=== PATIENT | female | born 1960 | race Caucasian/White ===

== ENCOUNTER → 2017-09-24 08:18 | Outpatient (CLI) | payer OTHER, SELFPAY ==
[2017-09-24 12:33] LABS: T3 Total - Triiodothyronine 1.02 ng/mL (0.6-1.81)
[2017-09-24 12:44] LABS: T4 Free Direct 1.08 ng/dL (0.76-1.46); Thyroid Stim Hormone (TSH) 0.51 uIU/mL (0.358-3.74)
== END ==
PROVIDERS: Family Provider Family Medicine; PCP Family Medicine; Visit Provider Family Medicine
DX: E03.9 Hypothyroidism, unspecified (principal)
CPT/HCPCS: 36415; 84439; 84443; 84480

== ENCOUNTER → 2018-07-15 13:57 | Outpatient (CLI) | payer OTHER, SELFPAY ==
[2018-07-15 15:56] LABS: T4 Free Direct 1.04 ng/dL (0.76-1.46); Thyroid Stim Hormone (TSH) 0.28 uIU/mL (0.358-3.74)
[2018-07-15 16:06] LABS: T3 Total - Triiodothyronine 1.12 ng/mL (0.6-1.81); Vitamin B12 493 pg/mL (211-911); Vitamin D,25 Hydroxy 25.3 ng/mL (29.95-100.01)
--- OUTSIDE RECORDS SUMMARY | 2018-10-17 05:41 | XMS RPT_ITS ---
:1960 Author Organization [facility] Care Team Providers Name Role Phone Mayte Montana Attending Unavailable Malys, Mayte Primary Care Unavailable [place], Mayte Attending Unavailable [place]ys, Mayte Primary Care Unavailable PROBLEMS PROBLEMS DATE TYPE CONDITION / CODE ATTENDING STATUS SOURCE 09/24/2017 Unknown E03.9 - Mayte Montana Active [place] Hypothyroidism, Community unspecified / Hospital E03.9(ICD-10) Repository PROCEDURES PROCEDURES No Procedure Records FoundRESULTS RESULTS THYROID STIM HORMONE Collected: 07/15/2018 Status: F Source: [place] (TSH) 1:58 PM [facility] [place] CODE TESTS RESULT OUT OF RANGE REFERENCE UNITS LAB L501.9520 0.358-3.74 uIU/mL Low TSH 0.28 Performed By: #### L501.9520, L506.0400 #### [place] [facility] [address] [place], [address] T4 FREE DIRECT Collected: 07/15/2018 Status: F Source: [place] 1:58 PM [facility] [place] CODE TESTS RESULT OUT OF RANGE REFERENCE UNITS LAB L506.0400 0.76-1.46 ng/dL Normal T4 FREE 1.04 DIRECT Performed By: #### L501.9520, L506.0400 #### [facility] [address] [place], [address] T3 TOTAL - TRIIODOTHYRONINE Collected: 07/15/2018 Status: F Source: [place] 1:58 PM [facility] [place] CODE TESTS RESULT OUT OF RANGE REFERENCE UNITS LAB L501.9186 0.6-1.81 ng/mL Normal T3 Total 1.12 Performed By: #### L501.9186, L503.0105, L506.1000 #### [facility] [address] [place], [address] VITAMIN B12 Collected: 07/15/2018 Status: F Source: [place] 1:58 PM [facility] [place] CODE TESTS RESULT OUT OF RANGE REFERENCE UNITS LAB L503.0105 211-911 pg/mL Normal Vitamin B12 493 Performed By: #### L501.9186, L503.0105, L506.1000 #### [facility] [address] [place], [address] VITAMIN D,25 HYDROXY Collected: 07/15/2018 Status: F Source: [place] 1:58 PM [facility] [place] CODE TESTS RESULT OUT OF REFERENCE UNITS RANGE LAB L506.1000 29.95-100.01 ng/mL Low Vitamin D 25.3 25-OH Result Comment: Vitamin D 25(OH) Status Range Deficiency <20 ng/mL (50nmol/L) Insuffciency 20 - 30 ng/mL (50 - 75 nmol/L) Sufficiency 30 - 100 ng/mL (75 - 250 nmol/L) Toxicity >100 ng/mL (>250 nmol/L) Performed By: #### L501.9186, L503.0105, L506.1000 #### [facility] [address] [place], [address] T3 TOTAL - TRIIODOTHYRONINE Collected: 09/24/2017 Status: F Source: [place] 8:20 AM [facility] [place] CODE TESTS RESULT OUT OF RANGE REFERENCE UNITS LAB L501.9186 0.6-1.81 ng/mL Normal T3 Total 1.02 Performed By: #### L501.9186 #### [facility] [address] [place], [address] THYROID STIM HORMONE Collected: 09/24/2017 Status: F Source: [place] (TSH) 8:20 AM [facility] [place] CODE TESTS RESULT OUT OF RANGE REFERENCE UNITS LAB L501.9520 0.358-3.74 uIU/mL Normal TSH 0.51 Performed By: #### L501.9520, L506.0400 #### [facility] [address] [place], [address] T4 FREE DIRECT Collected: 09/24/2017 Status: F Source: [place] 8:20 AM [facility] [place] CODE TESTS RESULT OUT OF RANGE REFERENCE UNITS LAB L506.0400 0.76-1.46 ng/dL Normal T4 FREE 1.08 DIRECT Performed By: #### L501.9520, L506.0400 #### [facility] [address] [place], [address] ALLERGIES ALLERGIES DATE TYPE / CODE NAME / CODE REACTION SEVERITY SOURCE 06/22/2014 Drug No Known Unknown [facility] Allergy/4160 Allergies/F00 [facility] [address](SNOMED [id number](RXNOR Repository CT) M) ENCOUNTERS ENCOUNTERS ADMIT/DISCHARGE ACCOUNT ADMITTING ENCOUNTER LOCATION SOURCE NUMBER CLASS 07/15/2018 [id number] Ambulatory [facility] 7 [facility] ing:BFHLAB Repository 09/24/2017 [id number] Ambulatory [facility] 9 [facility] ing:LAB.FUTUR Repository E PAYERS PAYERS ENCOUNTER GUARANTOR PAYER SUBSCRIBER SOURCE 07/15/2018 Zo Pinzon [place] [id number] [place] Insurance:MEDICAL ZemrockDOB: [facility] [id number] [id number]: [phone]) Number: Repository [phone] () [id number] Date:[id number] [place], [place] [id number]: 07/15/2018 Secondary NOT GIVENUNK [place] Insurance:SELF PAY [facility] Number: Effective Repository Date:2018-07-15 09/24/2017 Zo Valdivia [id number] [place] Insurance:MEDICAL ZemrockDOB: [facility] [id number] [id number]: [phone]) Number: Repository [phone] () [id number] Date:[id number], [place] [address]NS: 09/24/2017 Secondary NOT GIVENUNK [place] Insurance:SELF PAY [facility] Number: Effective Repository Date:2017-07-16
== END ==
PROVIDERS: Family Provider Family Medicine; PCP Family Medicine; Visit Provider Family Medicine
DX: E03.9 Hypothyroidism, unspecified (principal); E55.9 Vitamin D deficiency, unspecified; E53.8 Deficiency of other specified B group vitamins
CPT/HCPCS: 36415; 82306; 82607; 84439; 84443; 84480

== ENCOUNTER → 2018-09-06 08:15 | Outpatient (CLI) | payer OTHER, SELFPAY ==
--- NOTE | 2018-09-06 08:18 | BI_ITS ---
MAMMOGRAPHY - BILATERAL SCREENING REASON FOR EXAM: Female, 58 years old. Routine annual screening examination. PERTINENT HISTORY: Mother with breast cancer. Grandmother with breast cancer. Aunt with breast cancer. Remote right stereotactic breast biopsies. TECHNIQUE: Digital bilateral breast paris (3D mammographic acquisition) in the CC and MLO projections. 2-D mediolateral oblique (MLO) and craniocaudad (CC) views of both breasts were obtained. CAD: Full Field Digital Mammography with Computer Added Detection was performed. COMPARISON: Comparison is made with prior examination dated August 15, 2017 and August 02, 2016. FINDINGS: Breast Composition: There are scattered areas of fibroglandular density. There are no dominant masses or suspicious calcifications. Stable 1.1 cm well-defined nodule in the deep slightly upper lateral portion of the right breast. A tissue clip marker is seen adjacent to this. A second tissue clip marker is seen in the deep slightly inferior aspect of the right breast. Stable tiny nodules are once again seen in the anterior aspect of the right breast. No other significant abnormalities are identified. There has been no significant change since the prior study. BI/SCREENING MAMM (CAD), BILAT IMPRESSION: Stable bilateral screening mammogram. Yearly follow-up mammogram recommended. (A) ASSESSMENT CATEGORY: BIRADS Category 2: Benign. A letter regarding these results will be sent to the patient by the facility within 30 days. Approximately 10% of breast cancers are not detected by mammography. A normal mammogram should not delay biopsy of a clinically suspicious abnormality. [id number] Electronically Signed: Jewel Emerson MD at 10:16 EST , Service support ,
== END ==
PROVIDERS: Family Provider Family Medicine; PCP Family Medicine; Referring Provider Family Medicine; Visit Provider Family Medicine
DX: Z12.31 Encounter for screening mammogram for malignant neoplasm of breast (principal)
CPT/HCPCS: 77063; 77067

== ENCOUNTER → 2018-12-05 | Outpatient (CLI) | payer OTHER, SELFPAY | END | disposition home or self-care (01) | LOC: BFHLAB 13:40 | PROVIDERS: Family Provider Family Medicine; PCP Family Medicine; Visit Provider Family Medicine | DX: R30.0 Dysuria (principal) | CPT/HCPCS: 87086; 87088; 87186 ==

== ENCOUNTER → 2019-07-07 05:55 | Outpatient (CLI) | payer OTHER, SELFPAY ==
[2019-07-07 07:27] LABS: Absolute Lymphocyte Count 2.18 X10^3/uL (0.83-4.51); Absolute Neutrophil Count 3.4 X10^3/uL (2.0-7.7); Basophil# 0.05 X10^3/uL; Basophil% 0.8 % (0-1); Eosinophil# 0.28 X10^3/uL; Eosinophils% 4.4 % (0-5); Hematocrit 43.3 % (37-47); Hemoglobin 13.9 g/dL (12.0-15.0); Lymphocyte # 2.18 X10^3/ul (4.0); Lymphocyte % 34.2 % (19-41); Mean Corp Hgb Conc 32.1 g/dL (32-36); Mean Corpuscular Hgb 28.7 pg (27.0-32.0); Mean Corpuscular Volume 89.5 fL (81-99); Monocyte# 0.48 X10^3/uL; Monocyte% 7.5 % (0-10); NRBC Flagged by Analyzer 0 % (0-5); Neutrophil # 3.37 X10^3/uL (2.7-7.7); Neutrophil % 52.8 % (47-70); Platelet Count 275 K/mm3 (150-450); RBC Distribution Width CV 12.1 % (11.6-14.6); RBC Distribution Width SD 39.7 fl (35.1-43.9); Red Blood Count 4.84 M/mm3 (4.2-5.4); White Blood Count 6.4 K/mm3 (4.4-11.0)
[2019-07-07 08:01] LABS: ALB/GLOB Ratio 1.2 RATIO (0.9-2.4); AST(SGOT) 19 U/L (15-37); Alanine Aminotransfer ALT/SGPT 24 U/L (13-56); Alkaline Phosphatase 80 U/L (45-117); Anion Gap 3 (5-15); BUN 16 mg/dL (7-18); BUN/Creat Ratio 14.2 RATIO (10-20); Calcium,Total 8.8 mg/dL (8.5-10.1); Chloride 108 mmol/L (98-107); Cholesterol 177 mg/dL (200); Creatinine, Serum 1.13 mg/dL (0.55-1.02); EST Glomerular Filtration Rate 53 mL/min (>60); Est Glom Filt Rate - Afr Amer 64 mL/min (>60); Free T3 2.4 pg/mL (2.18-3.98); Globulin 3.3 g/dL (2.2-4.2); Glucose 97 mg/dL (74-106); High Density Lipoprotein 49 mg/dL; Potassium 4.2 mmol/L (3.5-5.1); Protein, Total 7.3 g/dL (6.4-8.2); Sodium Level 140 mmol/L (136-145); T4 Free Direct 0.85 ng/dL (0.76-1.46); Triglycerides 108 mg/dL; Very Low Density Lipoprotein 22 mg/dL (5-40)
== END ==
PROVIDERS: Family Provider Family Medicine; PCP Family Medicine; Referring Provider Family Medicine; Visit Provider Family Medicine
DX: E78.5 Hyperlipidemia, unspecified (principal); I10 Essential (primary) hypertension; Z51.81 Encounter for therapeutic drug level monitoring; E03.9 Hypothyroidism, unspecified
CPT/HCPCS: 36415; 80053; 80061; 84439; 84443; 84481; 85025

== ENCOUNTER → 2019-07-17 14:11 | Outpatient (CLI) | payer SELFPAY ==
--- NOTE | 2019-07-17 14:14 | CT_ITS ---
STUDY: CARDIAC CALCIUM SCORING - CT CHEST REASON FOR EXAM: Female, 58 years old. Family history of heart disease RADIATION DOSAGE (If Supplied By Facility): CTDIvol = ( 12.19 ) mGy, DLP = ( 195.04 ) mGycm TECHNIQUE: Axial non-enhanced images were acquired through the heart for the sole purpose of measuring coronary artery calcium. Individualized dose optimization techniques were used for this CT. COMPARISON: None. FINDINGS: Visualized surrounding anatomy: Normal. Left Main Coronary Artery: 0 Left Anterior Descending Artery: 0 Left Circumflex Artery: 0 Right Coronary Artery: 0 Other: Total Calcium Score: 0 CT/Limited Chest CT w/CCTA IMPRESSION: A Calcium Score of 0 places the patient in the approximate 25 percentile, based on the HIRSCH data calculator. Please go to: [email or web address] , for a description of the calculator. Electronically Signed: Santiago Foster MD at 16:04 EST , Service support ,
[2019-07-17 14:32] VITALS: BP 134/54; PULSE 70; RESP 14; O2SAT 96; BMI 34.7
--- NOTE | 2019-07-17 17:49 | CA.SCORE ---
Calcium Scoring Date of Study:: 07/17/19 Coronary Calcium Scoring: High-resolution Computed Tomographic imaging of the chest was performed on 07/17/2019 with particular attention paid to the coronary arteries. Images from the examination were analyzed for the presence and extent of coronary artery calcification , using coronary calcium quantification software. The patient tolerated the procedure well and there were no complications. The results of the coronary calcification analysis are provided below. - Findings Left Main (LM): 0 Left Anterior Descending (LAD): 0 Left Circumflex (LCX): 0 Right Coronary Artery (RCA): 0 Total Agatston Score: 0 Percentile Ranking: Percentile ranking: Based upon pre-published data of 25% of patients of the same gender/similar age had the same and/or lower scores. Calcium Scoring Interpretation: 0 No identifiable atherosclerotic plaque. Very low cardiovascular disease risk. <5% chance of presence coronary artery disease A Negative Examination 1-10 Minimal Plaque burden. Significant coronary artery disease very unlikely. 11-100 Mild plaque burden. Likely mild or minimal coronary atherosclerosis. 101-400 Moderate plaque burden Moderate non-obstructive coronary artery disease highly likely. Over 400 Extensive plaque burden. High likelihood of at least one significant coronary stenosis (>50% diameter) Calcium Score: 0 Negative Examination - Continue cardiovascular risk factor evaluation and care as deemed appropriate.
== END ==
PROVIDERS: Family Provider Family Medicine; PCP Family Medicine; Referring Provider Family Medicine; Visit Provider Family Medicine
DX: I10 Essential (primary) hypertension (principal); E78.5 Hyperlipidemia, unspecified; Z82.49 Family history of ischemic heart disease and other diseases of the circulatory system
CPT/HCPCS: 75571; 76380

== ENCOUNTER → 2019-09-09 07:28 | Outpatient (CLI) | payer OTHER, SELFPAY ==
[2019-07-17 14:32] VITALS: BMI 34.7
--- NOTE | 2019-09-09 06:52 | BI_ITS ---
MAMMOGRAPHY - BILATERAL SCREENING REASON FOR EXAM: Female, 59 years old. Routine annual screening examination. PERTINENT HISTORY: Mother with breast cancer. Grandmother with breast cancer. Aunt with breast cancer. Prior right stereotactic breast biopsy. TECHNIQUE: Digital bilateral breast henrique (3D mammographic acquisition) in the CC and MLO projections. 2-D mediolateral oblique (MLO) and craniocaudad (CC) views of both breasts were obtained. CAD: Full Field Digital Mammography with Computer Added Detection was performed. COMPARISON: Comparison is made with prior examination dated September 06, 2018 and August 15, 2007. FINDINGS: Breast Composition: There are scattered areas of fibroglandular density. There are no dominant masses or suspicious calcifications. The previously seen well-defined nodule in the deep slightly upper lateral aspect of the right breast has decreased further in size. It presently measures 6.6 mm x 7 mm. A tissue clip marker is once again seen adjacent to this nodule. A second tissue clip marker is seen in the deep slightly inferior aspect of the right breast. No other significant abnormalities are identified. BI/SCREEN MAMM (CAD) W/HENRIQUE BILAT IMPRESSION: Stable bilateral screening mammogram. Yearly follow-up mammogram recommended. (A) ASSESSMENT CATEGORY: BIRADS Category 0: Incomplete. Need additional imaging evaluation. A letter regarding these results will be sent to the patient by the facility within 30 days. Approximately 10% of breast cancers are not detected by mammography. A normal mammogram should not delay biopsy of a clinically suspicious abnormality. [id number] Electronically Signed: Jewel [place], at 8:37 EST , Service support ,
== END ==
LOC: OPBI 07:28
PROVIDERS: PCP Family Medicine; Referring Provider Family Medicine; Visit Provider Family Medicine
DX: Z12.31 Encounter for screening mammogram for malignant neoplasm of breast (principal)
CPT/HCPCS: 77063; 77067

== ENCOUNTER → 2019-09-10 16:18 | Outpatient (CLI) | payer OTHER, SELFPAY ==
[2019-07-17 14:32] VITALS: BMI 34.7
[2019-09-10 17:37] LABS: Erythrocyte Sedimentation Rate 5 mm/hr (0-30)
[2019-09-10 18:23] LABS: ALB/GLOB Ratio 1.2 RATIO (0.9-2.4); AST(SGOT) 17 U/L (15-37); Alanine Aminotransfer ALT/SGPT 32 U/L (13-56); Albumin, Serum 4.2 g/dL (3.2-5.0); Alkaline Phosphatase 81 U/L (45-117); Anion Gap 7 (5-15); BUN 26 mg/dL (7-18); CRP 5.63 mg/L (0.0-3.0); Calcium,Total 9.6 mg/dL (8.5-10.1); Chloride 105 mmol/L (98-107); EST Glomerular Filtration Rate 45 mL/min (>60); Est Glom Filt Rate - Afr Amer 54 mL/min (>60); Free T3 2.5 pg/mL (2.18-3.98); Globulin 3.5 g/dL (2.2-4.2); Glucose 83 mg/dL (74-106); Potassium 3.7 mmol/L (3.5-5.1); Protein, Total 7.7 g/dL (6.4-8.2); Sodium Level 139 mmol/L (136-145); Thyroid Stim Hormone (TSH) 1.95 uIU/mL (0.358-3.74)
[2019-09-15 12:07] LABS: Lyme IgG P18 Ab Absent (.); Lyme IgG P23 Ab Absent (.); Lyme IgG P28 Ab Absent (.); Lyme IgG P30 Ab Absent (.); Lyme IgG P39 Ab Absent (.); Lyme IgG P41 Ab Present (.); Lyme IgG P45 Ab Absent (.); Lyme IgG P58 Ab Absent (.); Lyme IgG P66 Ab Absent (.); Lyme IgG P93 Ab Absent (.); Lyme IgM P23 Ab Absent (.); Lyme IgM P39 Ab Present (.); Lyme IgM P41 Ab Absent (.)
[2019-09-15 22:14] LABS: Lyme IgG WB Interpretation Negative (.); Lyme IgM WB Interpretation Negative (.)
== END ==
PROVIDERS: Family Provider Family Medicine; PCP Family Medicine; Visit Provider Family Medicine
DX: M25.50 Pain in unspecified joint (principal); W57.XXXA Bitten or stung by nonvenomous insect and other nonvenomous arthropods, initial encounter; I10 Essential (primary) hypertension; E78.5 Hyperlipidemia, unspecified; E03.9 Hypothyroidism, unspecified; Z51.81 Encounter for therapeutic drug level monitoring
CPT/HCPCS: 36415; 80053; 84443; 84481; 85652; 86140; 86617

== ENCOUNTER → 2019-09-23 07:36 | Outpatient (CLI) | payer OTHER, SELFPAY ==
[2019-07-17 14:32] VITALS: BMI 34.7
--- NOTE | 2019-09-23 07:42 | US_ITS ---
STUDY: RENAL ULTRASOUND - COMPLETE REASON FOR EXAM: Female, 59 years old. DECREASED RENAL FUNCTION TECHNIQUE: Ultrasound evaluation of the kidneys was performed with real-time and static machuca-scale imaging. COMPARISON: None. FINDINGS: RIGHT KIDNEY: Normal location of the right kidney, which is normal in size. The right kidney measures 10.4 x 5.6 x 4.5 cm. There is a normal cortex of the right kidney. The renal cortex measures 1.6 cm. There is no right renal mass or cyst. There are no right renal calculi. There is no right hydronephrosis. DISTAL RIGHT URETER: There is non-visualization of the distal right ureter. There is no demonstrated right ureterovesical junction calculus. There is a visualized right ureteral jet. LEFT KIDNEY: Normal location of the left kidney, which is normal in size. The left kidney measures 11.4 x 4.8 x 4.3 cm. There is a normal cortex of the left kidney. The renal cortex measures 1.6 cm. There is no left renal mass or cyst. There are no left renal calculi. There is no left hydronephrosis. DISTAL LEFT URETER: There is non-visualization of the distal left ureter. There is no demonstrated left ureterovesical junction calculus. There is a visualized left ureteral jet. BLADDER: The distended urinary bladder has a volume of 565 ml. . There is a normal wall thickness of the distended urinary bladder. Bladder wall thickness is 4 mm. There is no demonstrated mass within the urinary bladder. There are no demonstrated bladder calculi. US/Kidney and Bladder IMPRESSION: Normal ultrasound of the kidneys and urinary bladder. Electronically Signed: Mathew Haley MD at 23:57 EST , Service support ,
== END ==
PROVIDERS: PCP Family Medicine; Referring Provider Family Medicine; Visit Provider Family Medicine
DX: N28.9 Disorder of kidney and ureter, unspecified (principal)
CPT/HCPCS: 76770

== ENCOUNTER → 2019-12-01 09:47 | Outpatient (CLI) | payer OTHER, SELFPAY ==
[2019-07-17 14:32] VITALS: BMI 34.7
[2019-12-01 10:57] LABS: Anion Gap 5 (5-15); BUN 18 mg/dL (7-18); BUN/Creat Ratio 16.8 RATIO (10-20); Chloride 109 mmol/L (98-107); Creatinine, Serum 1.07 mg/dL (0.55-1.02); EST Glomerular Filtration Rate 56 mL/min (>60); Est Glom Filt Rate - Afr Amer 68 mL/min (>60); Glucose 85 mg/dL (74-106); Phosphorus 3.9 mg/dL (2.5-4.9); Sodium Level 140 mmol/L (136-145)
[2019-12-01 11:00] LABS: PTHIN 35.8 pg/mL (18.4-80.1)
[2019-12-01 11:04] LABS: Vitamin D,25 Hydroxy 30.5 ng/mL
[2019-12-01 11:18] LABS: 24 Hour Urine Protein 74.1 mg/24HR (<150 MG/24HR); 24HR. UA Prot. Total Volume 1300 mL; Urine Protein (24 Hour) < 6.0 mg/dL (<11.9)
[2019-12-01 11:19] LABS: Creat.Clear Total Volume 1300 mL; Creatinine Clearance 90 ml/min (100-200); Creatinine Serum Creat 1.1 mg/dL (0.6-1.0); EST Glomerular Filtration Rate 56 mL/min (>60); Est Glom Filt Rate - Afr Amer 68 mL/min (>60)
[2019-12-03 12:07] LABS: PROEL- A/G Ratio 1.2 (0.7-1.7); PROEL- Albumin 3.7 g/dL (2.9-4.4); PROEL- Alpha-1 Globulin 0.2 g/dL (0.0-0.4); PROEL- Alpha-2 Globulin 0.7 g/dL (0.4-1.0); PROEL- Beta Globulin 1.1 g/dL (0.7-1.3); PROEL- Globulin, Total 3.1 g/dL (2.2-3.9); PROEL- TOTAL PROTEIN 6.8 g/dL (6.0-8.5); PROELU- Albumin, Urine 29.5 % (.); PROELU- Alpha-1-Globulin,Ur 0.4 % (.); PROELU- Alpha-2-Globulin,Ur 15.8 % (.); PROELU- Beta Globulin, Ur 28.9 % (.); PROELU- Gamma Globulin, Ur 25.5 % (.); Total Protein, Ur 11.5 mg/dL (Not Estab.)
== END ==
PROVIDERS: PCP Family Medicine; Referring Provider Internal Medicine; Visit Provider Internal Medicine
DX: N18.3 Chronic kidney disease, stage 3 (moderate) (principal)
CPT/HCPCS: 80048; 81050; 82306; 82575; 83970; 84100; 84156; 84165; 84166

== ENCOUNTER → 2020-01-02 09:47 | Outpatient (CLI) | payer OTHER, SELFPAY ==
[2019-07-17 14:32] VITALS: BMI 34.7
[2020-01-02 09:50] LABS: Bacteria 0 SEEN /hpf (None Seen); Mucous, Urine 0 SEEN /hpf (<or=2+); Red Blood Cells-Urine 0 SEEN /hpf (0-5); Squamous Epithelial Cells - UA 0 SEEN /hpf (5-10)
[2020-01-02 12:30] LABS: Erythrocyte Sedimentation Rate 5 mm/hr (0-30)
[2020-01-02 12:35] LABS: Color, Urine Yellow (Yellow); Glucose, Dipstick Normal (Normal); Ketone-Dipstick Negative (Negative); Leukocyte Esterase-Dipstick 25 /ul (Negative); Nitrite-Dipstick Negative (Negative); Occult Blood-Urine 10 /ul (Negative); Protein-Dipstick Negative (Negative); Urine Bilirubin Dipstick Negative (Negative); Urine Clarity Clear (Clear); Urine Urobilinogen Normal (Normal)
[2020-01-02 12:45] LABS: White Blood Cells 0-5 SEEN /hpf (0-5)
[2020-01-02 13:08] LABS: CRP 3.13 mg/L (0.0-3.0)
[2020-01-02 13:14] LABS: Microalbumin,Random Urine 14.7 mg/L (NO RANGE EST.); Microalbumin:Creatinine Ratio 6.3 mg/g CRE (<30 mg/g CRE)
[2020-01-04 21:17] LABS: CCP IgG Antibodies 5 units (0-19)
[2020-01-05 15:48] LABS: ANTINUCLEAR ANTIBODIES DIRECT Negative (Negative)
== END ==
LOC: LAB.FUTURE 09:47 → BFHLAB 09:48
PROVIDERS: PCP Family Medicine; Visit Provider Family Medicine
DX: N18.3 Chronic kidney disease, stage 3 (moderate) (principal); M25.50 Pain in unspecified joint; M79.10 Myalgia, unspecified site
CPT/HCPCS: 36415; 81001; 82043; 82570; 85652; 86038; 86140; 86200; 86225; 86235; 86431

== ENCOUNTER → 2020-05-25 16:25 | Outpatient (CLI) | payer OTHER, SELFPAY ==
[2019-07-17 14:32] VITALS: BMI 34.7
[2020-05-25 16:29] LABS: Bacteria 0 SEEN /hpf (None Seen); Mucous, Urine 0 SEEN /hpf (<or=2+); Red Blood Cells-Urine 0 SEEN /hpf (0-5); Squamous Epithelial Cells - UA 0 SEEN /hpf (5-10); White Blood Cells 0 SEEN /hpf (0-5)
[2020-05-25 17:18] LABS: Color, Urine Yellow (Yellow); Glucose, Dipstick Normal (Normal); Ketone-Dipstick Negative (Negative); Leukocyte Esterase-Dipstick Negative /ul (Negative); Nitrite-Dipstick Negative (Negative); Occult Blood-Urine 10 /ul (Negative); Protein-Dipstick Negative (Negative); Specific Gravity, Urine 1.015 (1.002-1.030); Urine Bilirubin Dipstick Negative (Negative); Urine Clarity Clear (Clear); Urine Urobilinogen Normal (Normal); Urine pH 6.5 (5.0 - 8.0)
[2020-05-25 17:31] LABS: Protein, Urine (Random) < 6.0 mg/dL (<11.9)
[2020-05-25 17:43] LABS: Anion Gap 5 (5-15); BUN 20 mg/dL (7-18); BUN/Creat Ratio 17.4 RATIO (10-20); Calcium,Total 8.5 mg/dL (8.5-10.1); Chloride 105 mmol/L (98-107); Creatinine, Serum 1.15 mg/dL (0.55-1.02); EST Glomerular Filtration Rate 52 mL/min (>60); Est Glom Filt Rate - Afr Amer 62 mL/min (>60); Glucose 124 mg/dL (74-106); Phosphorus 3.7 mg/dL (2.5-4.9); Potassium 4.1 mmol/L (3.5-5.1); Sodium Level 139 mmol/L (136-145)
[2020-05-25 17:46] LABS: Vitamin D,25 Hydroxy 28.2 ng/mL
[2020-05-26 10:15] LABS: PTHIN 65.7 pg/mL (18.4-80.1)
== END ==
PROVIDERS: PCP Family Medicine; Visit Provider Internal Medicine
DX: N18.30 Chronic kidney disease, stage 3 unspecified (principal)
CPT/HCPCS: 36415; 80048; 81001; 82306; 82570; 83970; 84100; 84156

== ENCOUNTER → 2020-07-13 10:06 | Outpatient (CLI) | payer OTHER, SELFPAY ==
[2019-07-17 14:32] VITALS: BMI 34.7
[2020-07-13 12:18] LABS: Absolute Lymphocyte Count 1.81 X10^3/uL (0.83-4.51); Absolute Neutrophil Count 4.7 X10^3/uL (2.0-7.7); Basophil# 0.03 X10^3/uL; Basophil% 0.4 % (0-1); Eosinophil# 0.14 X10^3/uL; Hematocrit 43.2 % (37-47); Hemoglobin 13.8 g/dL (12.0-15.0); Lymphocyte # 1.81 X10^3/ul (4.0); Lymphocyte % 25.3 % (19-41); Mean Corp Hgb Conc 31.9 g/dL (32-36); Mean Corpuscular Hgb 27.8 pg (27.0-32.0); Mean Corpuscular Volume 87.1 fL (81-99); Mean Platelet Vol. 10.3 fl (6.2-12.0); Monocyte# 0.46 X10^3/uL; Monocyte% 6.4 % (0-10); NRBC Flagged by Analyzer 0 % (0-5); Neutrophil % 65.6 % (47-70); Platelet Count 288 K/mm3 (150-450); RBC Distribution Width CV 11.8 % (11.6-14.6); RBC Distribution Width SD 37.3 fl (35.1-43.9); Red Blood Count 4.96 M/mm3 (4.2-5.4); White Blood Count 7.2 K/mm3 (4.4-11.0)
[2020-07-13 12:20] LABS: Erythrocyte Sedimentation Rate 4 mm/hr (0-30)
[2020-07-13 12:45] LABS: ALB/GLOB Ratio 1.2 RATIO (0.9-2.4); AST(SGOT) 16 U/L (15-37); Alanine Aminotransfer ALT/SGPT 27 U/L (13-56); Alkaline Phosphatase 80 U/L (45-117); Anion Gap 7 (5-15); BUN 18 mg/dL (7-18); BUN/Creat Ratio 15.9 RATIO (10-20); CRP 6.68 mg/L (0.0-3.0); Chloride 107 mmol/L (98-107); Cholesterol 192 mg/dL (200); Creatinine, Serum 1.13 mg/dL (0.55-1.02); EST Glomerular Filtration Rate 53 mL/min (>60); Est Glom Filt Rate - Afr Amer 64 mL/min (>60); Free T3 2.8 pg/mL (2.18-3.98); Globulin 3.4 g/dL (2.2-4.2); Glucose 90 mg/dL (74-106); High Density Lipoprotein 41 mg/dL; Potassium 4.3 mmol/L (3.5-5.1); Protein, Total 7.4 g/dL (6.4-8.2); Sodium Level 141 mmol/L (136-145); Thyroid Stim Hormone (TSH) 0.75 uIU/mL (0.358-3.74); Triglycerides 146 mg/dL; Very Low Density Lipoprotein 29 mg/dL (5-40)
== END ==
PROVIDERS: PCP Family Medicine; Visit Provider Family Medicine
DX: E03.9 Hypothyroidism, unspecified (principal); M25.50 Pain in unspecified joint; E78.5 Hyperlipidemia, unspecified; Z51.81 Encounter for therapeutic drug level monitoring
CPT/HCPCS: 36415; 80053; 80061; 84439; 84443; 84481; 85025; 85652; 86140; 86431

== ENCOUNTER → 2020-09-20 07:38 | Outpatient (CLI) | payer OTHER, SELFPAY ==
[2019-07-17 14:32] VITALS: BMI 34.7
--- NOTE | 2020-09-20 07:40 | BI_ITS ---
MAMMOGRAPHY - BILATERAL SCREENING REASON FOR EXAM: Female, 60 years old. Routine annual screening examination. PERTINENT HISTORY: Mother with breast cancer. Grandmother with breast cancer. Aunt with breast cancer. History of prior right stereotactic breast biopsy. TECHNIQUE: Digital bilateral breast henrique (3D mammographic acquisition) in the CC and MLO projections. 2-D mediolateral oblique (MLO) and craniocaudad (CC) views of both breasts were obtained. CAD: Full Field Digital Mammography with Computer Added Detection was performed. COMPARISON: Comparison is made with prior study dated 09/09/2019 and 09/06/2018. FINDINGS: Breast Composition: There are scattered areas of fibroglandular density. There are no dominant masses or suspicious calcifications. There is a 5.9 mm x 6.3 mm well-defined nodule in the retroareolar region of the right breast. This was not seen on prior study. Correlation with ultrasound is recommended. Stable appearance of the tissue clip marker is in the right breast. No other significant abnormalities are identified. BI/SCRN MAMM (CAD)W/HENRIQUE BILAT IMPRESSION: 5.9 mm x 6.3 mm well-defined nodule in the retroareolar region of the right breast as described. Correlation with ultrasound is recommended. ASSESSMENT CATEGORY: BIRADS Category 0: Incomplete. Need additional imaging evaluation. A letter regarding these results will be sent to the patient by the facility within 30 days. Approximately 10% of breast cancers are not detected by mammography. A normal mammogram should not delay biopsy of a clinically suspicious abnormality. [id number] Electronically Signed: Jewel Emerson MD at 8:59 EST , Service support ,
== END ==
PROVIDERS: PCP Family Medicine; Referring Provider Family Medicine; Visit Provider Family Medicine
DX: Z12.31 Encounter for screening mammogram for malignant neoplasm of breast (principal)
CPT/HCPCS: 77063; 77067

== ENCOUNTER → 2020-09-22 10:45 | Outpatient (CLI) | payer OTHER, SELFPAY ==
[2019-07-17 14:32] VITALS: BMI 34.7
--- NOTE | 2020-09-22 10:47 | US_ITS ---
STUDY: ULTRASOUND BREAST - RIGHT REASON FOR EXAM: Female, 60 years old. Abnormal screening mammogram. TECHNIQUE: Axial and longitudinal images of the RIGHT breast were performed with a high resolution ultrasound transducer. # OF IMAGES: 31 COMPARISON: Comparison is made with prior mammogram dated 09/20/2020. FINDINGS: RIGHT Breast: The mammographic abnormality corresponds to a 6 mm x 5 mm x 7 mm cyst. This is adjacent to the nipple. Incidental note is made of a 6 mm x 5 mm x 6 mm septated cyst at the 12 o''clock position of the breast at 1 cm from nipple. US/Breast Limited Unilateral IMPRESSION: 2 small cysts. ASSESSMENT CATEGORY: BIRADS Category 2: Benign. A letter regarding these results will be sent to the patient by the facility within 30 days. Electronically Signed: Jewel Emerson MD at 12:53 EST , Service support ,
== END ==
PROVIDERS: PCP Family Medicine; Referring Provider Family Medicine; Visit Provider Family Medicine
DX: N63.41 Unspecified lump in right breast, subareolar (principal)
CPT/HCPCS: 76642

== ENCOUNTER → 2020-10-21 | Outpatient (CLI) | payer OTHER, SELFPAY ==
[2019-07-17 14:32] VITALS: BMI 34.7
[2020-10-21 17:03] LABS: Probe Check PASS; Specimen Processing Control PASS
== END | disposition home or self-care (01) ==
LOC: LABSPEC 13:39
PROVIDERS: PCP Family Medicine; Visit Provider Family Medicine
DX: Z20.828 Contact with and (suspected) exposure to other viral communicable diseases (principal)
CPT/HCPCS: 87635; U0002

== ENCOUNTER → 2020-10-22 08:43 | Outpatient (CLI) | payer OTHER, SELFPAY ==
[2019-07-17 14:32] VITALS: BMI 34.7
[2020-10-22 10:15] LABS: Color, Urine Yellow (Yellow); Glucose, Dipstick Normal (Normal); Ketone-Dipstick Negative (Negative); Leukocyte Esterase-Dipstick 25 /ul (Negative); Nitrite-Dipstick Negative (Negative); Occult Blood-Urine 10 /ul (Negative); Protein-Dipstick Negative (Negative); Specific Gravity, Urine 1.015 (1.002-1.030); Urine Bilirubin Dipstick Negative (Negative); Urine Clarity Sl. Cloudy (Clear); Urine Urobilinogen 1 mg/dl (Normal)
[2020-10-22 10:17] LABS: Anion Gap 7 (5-15); BUN 20 mg/dL (7-18); BUN/Creat Ratio 17.4 RATIO (10-20); Calcium,Total 8.9 mg/dL (8.5-10.1); Chloride 103 mmol/L (98-107); Creatinine, Serum 1.15 mg/dL (0.55-1.02); EST Glomerular Filtration Rate 52 mL/min (>60); Est Glom Filt Rate - Afr Amer 62 mL/min (>60); Glucose 97 mg/dL (74-106); Phosphorus 3.4 mg/dL (2.5-4.9); Potassium 3.3 mmol/L (3.5-5.1); Sodium Level 140 mmol/L (136-145)
[2020-10-22 10:19] LABS: Protein, Urine (Random) 29.8 mg/dL (<11.9); Protein:Creat Ratio 122 mg/g CRE (0-200)
== END ==
PROVIDERS: PCP Family Medicine; Referring Provider Internal Medicine; Visit Provider Internal Medicine
DX: N18.30 Chronic kidney disease, stage 3 unspecified (principal)
CPT/HCPCS: 36415; 80048; 81002; 82570; 84100; 84156

== ENCOUNTER → 2021-01-24 15:42 | Outpatient (CLI) | payer OTHER, SELFPAY ==
[2019-07-17 14:32] VITALS: BMI 34.7
[2021-01-24 17:24] LABS: Absolute Lymphocyte Count 2.45 X10^3/uL (0.83-4.51); Absolute Neutrophil Count 3.4 X10^3/uL (2.0-7.7); Basophil# 0.04 X10^3/uL; Basophil% 0.6 % (0-1); Eosinophil# 0.25 X10^3/uL; Eosinophils% 3.7 % (0-5); Hematocrit 42.8 % (37-47); Hemoglobin 13.8 g/dL (12.0-15.0); Lymphocyte # 2.45 X10^3/ul (0.83-4.51); Lymphocyte % 36.5 % (19-41); Mean Corp Hgb Conc 32.2 g/dL (32-36); Mean Corpuscular Hgb 27.9 pg (27.0-32.0); Mean Corpuscular Volume 86.5 fL (81-99); Mean Platelet Vol. 10.2 fl (6.2-12.0); Monocyte# 0.54 X10^3/uL; NRBC Flagged by Analyzer 0 % (0-5); Neutrophil # 3.42 X10^3/uL (2.7-7.7); Neutrophil % 51.1 % (47-70); Platelet Count 317 K/mm3 (150-450); RBC Distribution Width CV 12.2 % (11.6-14.6); RBC Distribution Width SD 38.6 fl (35.1-43.9); Red Blood Count 4.95 M/mm3 (4.2-5.4); White Blood Count 6.7 K/mm3 (4.4-11.0)
[2021-01-24 17:32] LABS: Erythrocyte Sedimentation Rate 4 mm/hr (0-30)
[2021-01-24 17:59] LABS: ALB/GLOB Ratio 1.2 RATIO (0.9-2.4); AST(SGOT) 26 U/L (15-37); Alanine Aminotransfer ALT/SGPT 34 U/L (13-56); Alkaline Phosphatase 94 U/L (45-117); Anion Gap 9 (5-15); BUN 14 mg/dL (7-18); CRP 4.71 mg/L (0.0-3.0); Calcium,Total 8.5 mg/dL (8.5-10.1); Chloride 104 mmol/L (98-107); Creatinine, Serum 1.17 mg/dL (0.55-1.02); EST Glomerular Filtration Rate 50 mL/min (>60); Est Glom Filt Rate - Afr Amer 61 mL/min (>60); Globulin 3.4 g/dL (2.2-4.2); Glucose 70 mg/dL (74-106); Potassium 3.8 mmol/L (3.5-5.1); Protein, Total 7.4 g/dL (6.4-8.2); Sodium Level 141 mmol/L (136-145)
[2021-01-27 13:32] LABS: CCP IgG Antibodies 5 units (0-19)
[2021-01-27 14:37] LABS: ANTINUCLEAR ANTIBODIES DIRECT Negative (Negative)
== END ==
PROVIDERS: PCP Family Medicine; Referring Provider Internal Medicine Rheumatology; Visit Provider Internal Medicine Rheumatology
DX: R76.8 Other specified abnormal immunological findings in serum (principal); N18.9 Chronic kidney disease, unspecified; F41.9 Anxiety disorder, unspecified; R51.9 Headache, unspecified; E03.9 Hypothyroidism, unspecified; Z86.73 Personal history of transient ischemic attack (TIA), and cerebral infarction without residual deficits; Z85.820 Personal history of malignant melanoma of skin
CPT/HCPCS: 36415; 80053; 85025; 85652; 86038; 86140; 86200; 86431

== ENCOUNTER 2021-08-26 11:58 | Outpatient (CLI) | payer OTHER, SELFPAY ==
[2021-08-26 12:26] LABS: Protein, Urine (Random) 7.6 mg/dL (<11.9); Protein:Creat Ratio 52 mg/g CRE (0-200)
[2021-08-26 12:47] LABS: Anion Gap 5 (5-15); BUN 19 mg/dL (7-18); BUN/Creat Ratio 18.3 RATIO (10-20); Calcium,Total 8.8 mg/dL (8.5-10.1); Chloride 108 mmol/L (98-107); Creatinine, Serum 1.04 mg/dL (0.55-1.02); EST Glomerular Filtration Rate 58 mL/min (>60); Est Glom Filt Rate - Afr Amer 70 mL/min (>60); Glucose 86 mg/dL (74-106); Potassium 4.7 mmol/L (3.5-5.1); Sodium Level 137 mmol/L (136-145)
== END 2021-08-26 23:59 | disposition short-term general hospital (02) ==
PROVIDERS: PCP Family Medicine; Visit Provider Internal Medicine Nephrology
DX: N18.31 Chronic kidney disease, stage 3a (principal)
CPT/HCPCS: 36415; 80048; 82570; 84156

== ENCOUNTER 2021-09-22 07:11 | Outpatient (CLI) | payer OTHER, SELFPAY ==
--- NOTE | 2021-09-22 07:14 | BI_ITS ---
MAMMOGRAPHY - BILATERAL SCREENING REASON FOR EXAM: Female, 61 years old. Routine annual screening examination. PERTINENT HISTORY: Mother with breast cancer. Grandmother with breast cancer. Aunt with breast cancer. Remote right stereotactic breast biopsy. TECHNIQUE: Digital bilateral breast henrique (3D mammographic acquisition) in the CC and MLO projections. 2-D mediolateral oblique (MLO) and craniocaudad (CC) views of both breasts were obtained. CAD: Full Field Digital Mammography with Computer Added Detection was performed. COMPARISON: Comparison is made with prior study dated 09/20/2020 and 09/09/2019 FINDINGS: Breast Composition: There are scattered areas of fibroglandular density. The previously seen 5.9 mm x 6.3 mm well-defined nodule in the retroareolar region of the right breast has decreased in size. There now is evidence of a 8 millimeter well-defined nodule in the slightly upper deep lateral portion of the right breast. This was demonstrated to be a cyst on prior sonogram. No other significant abnormalities are identified. BI/SCRN MAMM (CAD)W/HENRIQUE BILAT IMPRESSION: Stable bilateral screening mammogram. Yearly follow-up mammogram recommended. (A) ASSESSMENT CATEGORY: BIRADS Category 2: Benign. A letter regarding these results will be sent to the patient by the facility within 30 days. Approximately 10% of breast cancers are not detected by mammography. A normal mammogram should not delay biopsy of a clinically suspicious abnormality. [id number] Electronically Signed: Jewel Emerson MD at 8:58 EST ,
== END 2021-09-22 23:59 | disposition home or self-care (01) ==
LOC: OPBI 07:11
PROVIDERS: PCP Family Medicine; Visit Provider Family Medicine
DX: Z12.31 Encounter for screening mammogram for malignant neoplasm of breast (principal)
CPT/HCPCS: 77063; 77067

== ENCOUNTER → 2022-02-16 | Outpatient (CLI) | payer OTHER, SELFPAY ==
[2022-02-16 18:08] LABS: Protein, Urine (Random) < 6.0 mg/dL (<11.9); Protein:Creat Ratio 92 mg/g CRE (0-200)
== END | disposition home or self-care (01) ==
LOC: MTLAB 15:17
PROVIDERS: PCP Family Medicine; Referring Provider Internal Medicine Nephrology; Visit Provider Internal Medicine Nephrology
DX: N18.31 Chronic kidney disease, stage 3a (principal)
CPT/HCPCS: 36415; 80048; 82570; 84156

== ENCOUNTER → 2022-03-21 | Outpatient (CLI) | payer OTHER, SELFPAY ==
[2022-03-21 14:20] LABS: Erythrocyte Sedimentation Rate 6 mm/hr (0-30)
[2022-03-21 14:21] LABS: Absolute Lymphocyte Count 2.44 X10^3/uL (0.83-4.51); Absolute Neutrophil Count 4.6 X10^3/uL (2.0-7.7); Basophil# 0.05 X10^3/uL; Basophil% 0.6 % (0-1); Eosinophil# 0.25 X10^3/uL; Eosinophils% 3.2 % (0-5); Hematocrit 43.7 % (37-47); Hemoglobin 14.7 g/dL (12.0-15.0); Lymphocyte # 2.44 X10^3/ul (0.83-4.51); Lymphocyte % 31.2 % (19-41); Mean Corp Hgb Conc 33.6 g/dL (32-36); Mean Corpuscular Hgb 29.2 pg (27.0-32.0); Mean Corpuscular Volume 86.9 fL (81-99); Monocyte# 0.44 X10^3/uL; Monocyte% 5.6 % (0-10); NRBC Flagged by Analyzer 0 % (0-5); Neutrophil # 4.61 X10^3/uL (2.7-7.7); Neutrophil % 59.1 % (47-70); Platelet Count 286 K/mm3 (150-450); RBC Distribution Width SD 38.5 fl (35.1-43.9); Red Blood Count 5.03 M/mm3 (4.2-5.4); White Blood Count 7.8 K/mm3 (4.4-11.0)
[2022-03-21 14:46] LABS: ALB/GLOB Ratio 1.1 RATIO (0.9-2.4); AST(SGOT) 21 U/L (15-37); Alanine Aminotransfer ALT/SGPT 30 U/L (13-56); Alkaline Phosphatase 82 U/L (45-117); Anion Gap 5 (5-15); BUN 16 mg/dL (7-18); BUN/Creat Ratio 13.9 RATIO (10-20); CRP 3.22 mg/L (0.0-3.0); Calcium,Total 8.7 mg/dL (8.5-10.1); Chloride 106 mmol/L (98-107); Creatinine, Serum 1.15 mg/dL (0.55-1.02); EST Glomerular Filtration Rate 51 mL/min (>60); Est Glom Filt Rate - Afr Amer 62 mL/min (>60); Globulin 3.5 g/dL (2.2-4.2); Glucose 91 mg/dL (74-106); Potassium 3.9 mmol/L (3.5-5.1); Protein, Total 7.5 g/dL (6.4-8.2); Sodium Level 139 mmol/L (136-145)
== END | disposition home or self-care (01) ==
LOC: LAB 13:22
PROVIDERS: PCP Family Medicine; Referring Provider Internal Medicine Rheumatology; Visit Provider Internal Medicine Rheumatology
DX: M06.09 Rheumatoid arthritis without rheumatoid factor, multiple sites (principal); N18.9 Chronic kidney disease, unspecified; F41.9 Anxiety disorder, unspecified; R51.9 Headache, unspecified; E03.9 Hypothyroidism, unspecified; Z86.73 Personal history of transient ischemic attack (TIA), and cerebral infarction without residual deficits; Z85.820 Personal history of malignant melanoma of skin
CPT/HCPCS: 36415; 80053; 85025; 85652; 86140

== ENCOUNTER → 2022-05-17 | Outpatient (CLI) | payer OTHER, SELFPAY ==
[2022-05-17 12:29] LABS: Absolute Lymphocyte Count 2.32 X10^3/uL (0.83-4.51); Absolute Neutrophil Count 5.5 X10^3/uL (2.0-7.7); Basophil# 0.04 X10^3/uL; Basophil% 0.5 % (0-1); Eosinophil# 0.31 X10^3/uL; Eosinophils% 3.6 % (0-5); Hematocrit 43.4 % (37-47); Hemoglobin 14.6 g/dL (12.0-15.0); Lymphocyte # 2.32 X10^3/ul (0.83-4.51); Lymphocyte % 26.6 % (19-41); Mean Corp Hgb Conc 33.6 g/dL (32-36); Mean Corpuscular Hgb 29.7 pg (27.0-32.0); Mean Corpuscular Volume 88.2 fL (81-99); Mean Platelet Vol. 9.6 fl (6.2-12.0); Monocyte# 0.55 X10^3/uL; Monocyte% 6.3 % (0-10); NRBC Flagged by Analyzer 0 % (0-5); Neutrophil # 5.48 X10^3/uL (2.7-7.7); Neutrophil % 62.7 % (47-70); Platelet Count 276 K/mm3 (150-450); RBC Distribution Width CV 12.4 % (11.6-14.6); RBC Distribution Width SD 40.4 fl (35.1-43.9); Red Blood Count 4.92 M/mm3 (4.2-5.4); White Blood Count 8.7 K/mm3 (4.4-11.0)
[2022-05-17 12:55] LABS: ALB/GLOB Ratio 1.2 RATIO (0.9-2.4); AST(SGOT) 11 U/L (15-37); Alanine Aminotransfer ALT/SGPT 24 U/L (13-56); Albumin, Serum 3.9 g/dL (3.2-5.0); Alkaline Phosphatase 77 U/L (45-117); Anion Gap 7 (5-15); BUN 18 mg/dL (7-18); Chloride 106 mmol/L (98-107); Creatinine, Serum 1.06 mg/dL (0.55-1.02); EST Glomerular Filtration Rate 56 mL/min (>60); Est Glom Filt Rate - Afr Amer 68 mL/min (>60); Globulin 3.2 g/dL (2.2-4.2); Glucose 92 mg/dL (74-106); Potassium 4.3 mmol/L (3.5-5.1); Protein, Total 7.1 g/dL (6.4-8.2); Sodium Level 140 mmol/L (136-145)
== END | disposition home or self-care (01) ==
LOC: LAB 11:45
PROVIDERS: PCP Family Medicine; Visit Provider Internal Medicine Rheumatology
DX: M06.09 Rheumatoid arthritis without rheumatoid factor, multiple sites (principal); N18.9 Chronic kidney disease, unspecified; Z79.899 Other long term (current) drug therapy
CPT/HCPCS: 36415; 80053; 85025

== ENCOUNTER 2022-06-19 12:13 | Outpatient (CLI) | payer OTHER, SELFPAY ==
[2022-06-19 13:10] LABS: Absolute Lymphocyte Count 1.97 X10^3/uL (0.83-4.51); Absolute Neutrophil Count 3.3 X10^3/uL (2.0-7.7); Basophil# 0.05 X10^3/uL; Basophil% 0.8 % (0-1); Eosinophil# 0.17 X10^3/uL; Eosinophils% 2.8 % (0-5); Hemoglobin 13.8 g/dL (12.0-15.0); Lymphocyte # 1.97 X10^3/ul (0.83-4.51); Lymphocyte % 32.8 % (19-41); Mean Corp Hgb Conc 32.1 g/dL (32-36); Mean Corpuscular Hgb 28.9 pg (27.0-32.0); Mean Platelet Vol. 10.3 fl (6.2-12.0); Monocyte% 8.3 % (0-10); NRBC Flagged by Analyzer 0 % (0-5); Platelet Count 279 K/mm3 (150-450); RBC Distribution Width CV 12.2 % (11.6-14.6); RBC Distribution Width SD 40.4 fl (35.1-43.9); Red Blood Count 4.78 M/mm3 (4.2-5.4)
[2022-06-19 13:44] LABS: ALB/GLOB Ratio 1.2 RATIO (0.9-2.4); AST(SGOT) 23 U/L (15-37); Alanine Aminotransfer ALT/SGPT 31 U/L (13-56); Albumin, Serum 3.8 g/dL (3.2-5.0); Alkaline Phosphatase 80 U/L (45-117); Anion Gap 6 (5-15); BUN 16 mg/dL (7-18); BUN/Creat Ratio 15.8 RATIO (10-20); Calcium,Total 8.4 mg/dL (8.5-10.1); Chloride 106 mmol/L (98-107); Creatinine, Serum 1.01 mg/dL (0.55-1.02); EST Glomerular Filtration Rate 60 mL/min (>60); Est Glom Filt Rate - Afr Amer 72 mL/min (>60); Globulin 3.2 g/dL (2.2-4.2); Glucose 79 mg/dL (74-106); Sodium Level 140 mmol/L (136-145)
== END 2022-06-19 23:59 | disposition home or self-care (01) ==
LOC: LAB 12:16
PROVIDERS: PCP Family Medicine; Referring Provider Internal Medicine Rheumatology; Visit Provider Internal Medicine Rheumatology
DX: M06.09 Rheumatoid arthritis without rheumatoid factor, multiple sites (principal); Z79.899 Other long term (current) drug therapy; N18.9 Chronic kidney disease, unspecified; F41.9 Anxiety disorder, unspecified; R51.9 Headache, unspecified; E03.9 Hypothyroidism, unspecified; Z86.73 Personal history of transient ischemic attack (TIA), and cerebral infarction without residual deficits; Z85.820 Personal history of malignant melanoma of skin
CPT/HCPCS: 36415; 80053; 85025

== ENCOUNTER → 2022-08-23 | Outpatient (CLI) | payer OTHER, SELFPAY ==
[2022-08-23 12:16] LABS: Absolute Lymphocyte Count 1.91 X10^3/uL (0.83-4.51); Absolute Neutrophil Count 3.8 X10^3/uL (2.0-7.7); Basophil# 0.05 X10^3/uL; Basophil% 0.8 % (0-1); Eosinophil# 0.13 X10^3/uL; Hemoglobin 14.4 g/dL (12.0-15.0); Lymphocyte # 1.91 X10^3/ul (0.83-4.51); Lymphocyte % 29.6 % (19-41); Mean Corp Hgb Conc 32.7 g/dL (32-36); Mean Corpuscular Hgb 28.5 pg (27.0-32.0); Mean Corpuscular Volume 87.1 fL (81-99); Mean Platelet Vol. 10.9 fl (6.2-12.0); Monocyte# 0.57 X10^3/uL; Monocyte% 8.8 % (0-10); NRBC Flagged by Analyzer 0 % (0-5); Neutrophil # 3.78 X10^3/uL (2.7-7.7); Neutrophil % 58.6 % (47-70); Platelet Count 293 K/mm3 (150-450); RBC Distribution Width CV 11.6 % (11.6-14.6); RBC Distribution Width SD 37.2 fl (35.1-43.9); Red Blood Count 5.05 M/mm3 (4.2-5.4); White Blood Count 6.5 K/mm3 (4.4-11.0)
[2022-08-23 12:40] LABS: ALB/GLOB Ratio 1.2 RATIO (0.9-2.4); AST(SGOT) 21 U/L (15-37); Alanine Aminotransfer ALT/SGPT 35 U/L (13-56); Alkaline Phosphatase 64 U/L (45-117); Anion Gap 5 (5-15); BUN 15 mg/dL (7-18); BUN/Creat Ratio 13.9 RATIO (10-20); Calcium,Total 9.1 mg/dL (8.5-10.1); Chloride 103 mmol/L (98-107); Cholesterol 171 mg/dL (200); Creatinine, Serum 1.08 mg/dL (0.55-1.02); EST Glomerular Filtration Rate 55 mL/min (>60); Est Glom Filt Rate - Afr Amer 67 mL/min (>60); Free T3 2.8 pg/mL (2.18-3.98); Globulin 3.3 g/dL (2.2-4.2); Glucose 97 mg/dL (74-106); High Density Lipoprotein 43 mg/dL; Potassium 4.2 mmol/L (3.5-5.1); Protein, Total 7.3 g/dL (6.4-8.2); Sodium Level 138 mmol/L (136-145); T4 Free Direct 1.26 ng/dL (0.76-1.46); Thyroid Stim Hormone (TSH) 0.53 uIU/mL (0.358-3.74); Triglycerides 113 mg/dL; Very Low Density Lipoprotein 23 mg/dL (5-40)
== END | disposition home or self-care (01) ==
PROVIDERS: PCP Family Medicine; Referring Provider Internal Medicine Rheumatology; Visit Provider Family Medicine
DX: E03.9 Hypothyroidism, unspecified (principal); M06.09 Rheumatoid arthritis without rheumatoid factor, multiple sites; I10 Essential (primary) hypertension; E78.5 Hyperlipidemia, unspecified; Z79.899 Other long term (current) drug therapy
CPT/HCPCS: 36415; 80053; 80061; 84439; 84443; 84481; 85025

== ENCOUNTER → 2022-09-07 | Outpatient (CLI) | payer OTHER, SELFPAY ==
[2022-09-07 17:05] LABS: Albumin, Serum 3.9 g/dL (3.2-5.0); BUN 15 mg/dL (7-18); BUN/Creat Ratio 13.8 RATIO (10-20); Calcium,Total 8.7 mg/dL (8.5-10.1); Chloride 106 mmol/L (98-107); Creatinine, Serum 1.09 mg/dL (0.55-1.02); EST Glomerular Filtration Rate 54 mL/min (>60); Est Glom Filt Rate - Afr Amer 66 mL/min (>60); Glucose 95 mg/dL (74-106); Phosphorus 3.8 mg/dL (2.5-4.9); Potassium 3.7 mmol/L (3.5-5.1); Sodium Level 142 mmol/L (136-145)
== END | disposition home or self-care (01) ==
LOC: LAB 15:48
PROVIDERS: PCP Family Medicine; Visit Provider Internal Medicine Nephrology
DX: N18.31 Chronic kidney disease, stage 3a (principal)
CPT/HCPCS: 36415; 80069

== ENCOUNTER → 2022-09-25 | Outpatient (CLI) | payer OTHER, SELFPAY ==
--- NOTE | 2022-09-25 07:09 | BI_ITS ---
MAMMOGRAPHY - BILATERAL SCREENING REASON FOR EXAM: Female, 62 years old. Routine annual screening examination. PERTINENT HISTORY: Mother with breast cancer. Grandmother with breast cancer aunt with breast cancer. Prior right stereotactic breast biopsies. TECHNIQUE: Digital bilateral breast henrique (3D mammographic acquisition) in the CC and MLO projections. 2-D mediolateral oblique (MLO) and craniocaudad (CC) views of both breasts were obtained. CAD: Full Field Digital Mammography with Computer Added Detection was performed. COMPARISON: Comparison is made with prior study dated 09/22/2021 and 09/20/2020. FINDINGS: Breast Composition: There are scattered areas of fibroglandular density. There are no dominant masses or suspicious calcifications. A tissue clip marker is once again seen in the upper lateral aspect of the right breast. The previously seen 8 mm well-defined nodule in the slightly upper deep lateral portion of the right breast has decreased further in size. Presently measures 3 mm. Stable small benign-appearing bilateral axillary lymph nodes. No other significant abnormalities are identified. There has been no significant change since the prior study. BI/SCRN MAMM (CAD)W/HENRIQUE BILAT IMPRESSION: Stable bilateral screening mammogram. Yearly follow-up mammogram recommended. (A) ASSESSMENT CATEGORY: BIRADS Category 2: Benign. A letter regarding these results will be sent to the patient by the facility within 30 days. Approximately 10% of breast cancers are not detected by mammography. A normal mammogram should not delay biopsy of a clinically suspicious abnormality. [id number] Electronically Signed: Jewel [place] MD at 9:30 EST ,
== END | disposition home or self-care (01) ==
LOC: OPBI 07:07
PROVIDERS: PCP Family Medicine; Referring Provider Family Medicine; Visit Provider Family Medicine
DX: Z12.31 Encounter for screening mammogram for malignant neoplasm of breast (principal)
CPT/HCPCS: 77063; 77067

== ENCOUNTER → 2022-11-15 | Outpatient (CLI) | payer OTHER, SELFPAY ==
[2022-11-15 11:39] LABS: Absolute Lymphocyte Count 2.23 X10^3/uL (0.83-4.51); Absolute Neutrophil Count 3.9 X10^3/uL (2.0-7.7); Basophil# 0.04 X10^3/uL; Basophil% 0.6 % (0-1); Eosinophil# 0.23 X10^3/uL; Eosinophils% 3.3 % (0-5); Hemoglobin 14.4 g/dL (12.0-15.0); Lymphocyte # 2.23 X10^3/ul (0.83-4.51); Lymphocyte % 32.2 % (19-41); Mean Corp Hgb Conc 32.7 g/dL (32-36); Mean Corpuscular Hgb 27.7 pg (27.0-32.0); Mean Corpuscular Volume 84.8 fL (81-99); Mean Platelet Vol. 9.8 fl (6.2-12.0); Monocyte# 0.56 X10^3/uL; Monocyte% 8.1 % (0-10); NRBC Flagged by Analyzer 0 % (0-5); Neutrophil # 3.86 X10^3/uL (2.7-7.7); Neutrophil % 55.7 % (47-70); Platelet Count 279 K/mm3 (150-450); RBC Distribution Width CV 11.9 % (11.6-14.6); RBC Distribution Width SD 36.5 fl (35.1-43.9); Red Blood Count 5.19 M/mm3 (4.2-5.4); White Blood Count 6.9 K/mm3 (4.4-11.0)
[2022-11-15 12:09] LABS: ALB/GLOB Ratio 1.3 RATIO (0.9-2.4); AST(SGOT) 22 U/L (15-37); Alanine Aminotransfer ALT/SGPT 29 U/L (13-56); Alkaline Phosphatase 76 U/L (45-117); Anion Gap 2 (5-15); BUN 12 mg/dL (7-18); BUN/Creat Ratio 12.1 RATIO (10-20); Calcium,Total 8.6 mg/dL (8.5-10.1); Chloride 109 mmol/L (98-107); Creatinine, Serum 0.99 mg/dL (0.55-1.02); EST Glomerular Filtration Rate 61 mL/min (>60); Est Glom Filt Rate - Afr Amer 73 mL/min (>60); Globulin 3.1 g/dL (2.2-4.2); Glucose 98 mg/dL (74-106); Potassium 3.8 mmol/L (3.5-5.1); Protein, Total 7.1 g/dL (6.4-8.2); Sodium Level 137 mmol/L (136-145)
== END | disposition home or self-care (01) ==
LOC: LAB 11:20
PROVIDERS: PCP Family Medicine; Referring Provider Internal Medicine Rheumatology; Visit Provider Internal Medicine Rheumatology
DX: M06.09 Rheumatoid arthritis without rheumatoid factor, multiple sites (principal); Z79.899 Other long term (current) drug therapy
CPT/HCPCS: 36415; 80053; 85025

== ENCOUNTER → 2023-02-13 | Outpatient (CLI) | payer OTHER, SELFPAY ==
[2023-02-13 15:44] LABS: Absolute Lymphocyte Count 2.84 X10^3/uL (0.83-4.51); Absolute Neutrophil Count 3.5 X10^3/uL (2.0-7.7); Basophil# 0.07 X10^3/uL; Basophil% 0.9 % (0-1); Eosinophil# 0.39 X10^3/uL; Eosinophils% 5.3 % (0-5); Hematocrit 45.1 % (37-47); Hemoglobin 14.9 g/dL (12.0-15.0); Lymphocyte # 2.84 X10^3/ul (0.83-4.51); Lymphocyte % 38.4 % (19-41); Mean Corpuscular Hgb 28.5 pg (27.0-32.0); Mean Corpuscular Volume 86.4 fL (81-99); Mean Platelet Vol. 10.4 fl (6.2-12.0); Monocyte# 0.54 X10^3/uL; Monocyte% 7.3 % (0-10); NRBC Flagged by Analyzer 0 % (0-5); Neutrophil # 3.54 X10^3/uL (2.7-7.7); Platelet Count 272 K/mm3 (150-450); RBC Distribution Width SD 38.1 fl (35.1-43.9); Red Blood Count 5.22 M/mm3 (4.2-5.4); White Blood Count 7.4 K/mm3 (4.4-11.0)
[2023-02-13 16:20] LABS: ALB/GLOB Ratio 1.3 RATIO (0.9-2.4); AST(SGOT) 21 U/L (15-37); Alanine Aminotransfer ALT/SGPT 26 U/L (13-56); Albumin, Serum 4.2 g/dL (3.2-5.0); Alkaline Phosphatase 89 U/L (45-117); Anion Gap 7 (5-15); BUN 15 mg/dL (7-18); BUN/Creat Ratio 13.9 RATIO (10-20); Calcium,Total 8.7 mg/dL (8.5-10.1); Chloride 107 mmol/L (98-107); Creatinine, Serum 1.08 mg/dL (0.55-1.02); EST Glomerular Filtration Rate 55 mL/min (>60); Est Glom Filt Rate - Afr Amer 66 mL/min (>60); Free T3 2.9 pg/mL (2.18-3.98); Globulin 3.3 g/dL (2.2-4.2); Glucose 108 mg/dL (74-106); Potassium 3.9 mmol/L (3.5-5.1); Protein, Total 7.5 g/dL (6.4-8.2); Sodium Level 140 mmol/L (136-145); Thyroid Stim Hormone (TSH) 0.23 uIU/mL (0.358-3.74)
== END | disposition home or self-care (01) ==
LOC: LAB 15:09
PROVIDERS: PCP Family Medicine; Referring Provider Family Medicine; Visit Provider Family Medicine
DX: E03.9 Hypothyroidism, unspecified (principal); M06.09 Rheumatoid arthritis without rheumatoid factor, multiple sites; Z79.899 Other long term (current) drug therapy
CPT/HCPCS: 36415; 80053; 84439; 84443; 84481; 85025

== ENCOUNTER → 2023-05-07 | Outpatient (CLI) | payer OTHER, SELFPAY ==
[2023-05-07 09:10] LABS: Absolute Lymphocyte Count 1.91 X10^3/uL (0.83-4.51); Absolute Neutrophil Count 3.5 X10^3/uL (2.0-7.7); Basophil# 0.06 X10^3/uL; Eosinophil# 0.24 X10^3/uL; Eosinophils% 3.9 % (0-5); Hematocrit 43.6 % (37-47); Lymphocyte # 1.91 X10^3/ul (0.83-4.51); Mean Corp Hgb Conc 32.1 g/dL (32-36); Mean Corpuscular Hgb 28.2 pg (27.0-32.0); Mean Corpuscular Volume 87.7 fL (81-99); Mean Platelet Vol. 9.8 fl (6.2-12.0); Monocyte# 0.47 X10^3/uL; Monocyte% 7.6 % (0-10); NRBC Flagged by Analyzer 0 % (0-5); Neutrophil # 3.47 X10^3/uL (2.7-7.7); Neutrophil % 56.3 % (47-70); Platelet Count 263 K/mm3 (150-450); RBC Distribution Width CV 12.2 % (11.6-14.6); Red Blood Count 4.97 M/mm3 (4.2-5.4); White Blood Count 6.2 K/mm3 (4.4-11.0)
[2023-05-07 10:01] LABS: ALB/GLOB Ratio 1.3 RATIO (0.9-2.4); AST(SGOT) 16 U/L (15-37); Alanine Aminotransfer ALT/SGPT 29 U/L (13-56); Alkaline Phosphatase 72 U/L (45-117); Anion Gap 7 (5-15); BUN 17 mg/dL (7-18); Calcium,Total 8.9 mg/dL (8.5-10.1); Chloride 104 mmol/L (98-107); Creatinine, Serum 1.13 mg/dL (0.55-1.02); EST Glomerular Filtration Rate 52 mL/min (>60); Est Glom Filt Rate - Afr Amer 63 mL/min (>60); Glucose 99 mg/dL (74-106); Potassium 4.1 mmol/L (3.5-5.1); Sodium Level 137 mmol/L (136-145)
== END | disposition home or self-care (01) ==
LOC: LAB 08:56
PROVIDERS: PCP Family Medicine; Visit Provider Internal Medicine Rheumatology
DX: M06.09 Rheumatoid arthritis without rheumatoid factor, multiple sites (principal); Z79.899 Other long term (current) drug therapy; N18.9 Chronic kidney disease, unspecified
CPT/HCPCS: 36415; 80053; 85025

== ENCOUNTER → 2023-07-04 | Outpatient (CLI) | payer OTHER, SELFPAY ==
[2023-07-04 12:41] LABS: BUN 13 mg/dL (7-18); BUN/Creat Ratio 12.1 RATIO (10-20); Calcium,Total 8.7 mg/dL (8.5-10.1); Chloride 105 mmol/L (98-107); Creatinine, Serum 1.07 mg/dL (0.55-1.02); EST Glomerular Filtration Rate 55 mL/min (>60); Est Glom Filt Rate - Afr Amer 67 mL/min (>60); Glucose 86 mg/dL (74-106); Phosphorus 4.1 mg/dL (2.5-4.9); Sodium Level 140 mmol/L (136-145)
[2023-07-04 12:49] LABS: Protein, Urine (Random) < 6.0 mg/dL (<11.9)
== END | disposition home or self-care (01) ==
LOC: POLAB3 11:14
PROVIDERS: PCP Family Medicine; Visit Provider Internal Medicine Nephrology
DX: N18.31 Chronic kidney disease, stage 3a (principal)
CPT/HCPCS: 36415; 80069; 82570; 84156

== ENCOUNTER → 2023-07-31 | Outpatient (CLI) | payer OTHER, SELFPAY ==
--- OUTSIDE RECORDS SUMMARY | 2023-07-31 05:59 | XMS RPT_ITS | CCD ---
Author Name Unknown Address [address] [place] [address] Organization [facility] Results Test Name Value Interpretation Reference Range Facil ity Summary Purpose Family History No Family History Records Found Advance Directives No Advanced Directives Records Found Additional Source Comments INFORMATION SOURCE (unrecogn ized section and content) FOR RECORDS PERTAINING TO PATIENTS WHO ARE OR HAVE BEEN ENROLLED IN A CHEMICAL DEPENDENCY/SUBSTANCEABUSE PROGRAM, SOME INFORMATION MAY BE OMITTED. This clinical summary was aggregated from multiple sources. Caution should be exercised in using it in the provision of clinical care. This summary normalizes information from multiple sources, and as a consequence, information in this document may materially change the coding, format and clinical context of patient data. In addition, data may be omitted in some cases. CLINICAL DECISIONS SHOULD BE BASED ON THE PRIMARY CLINICAL RECORDS. [employer] provides no warranty or guarantee of the accuracy or completeness of information in this document.
[2023-07-31 06:43] LABS: Absolute Lymphocyte Count 2.06 X10^3/uL (0.83-4.51); Absolute Neutrophil Count 3.1 X10^3/uL (2.0-7.7); Basophil# 0.08 X10^3/uL; Basophil% 1.2 % (0-1); Eosinophil# 0.67 X10^3/uL; Eosinophils% 10.2 % (0-5); Hematocrit 44.9 % (37-47); Hemoglobin 14.2 g/dL (12.0-15.0); Lymphocyte # 2.06 X10^3/ul (0.83-4.51); Lymphocyte % 31.3 % (19-41); Mean Corp Hgb Conc 31.6 g/dL (32-36); Mean Corpuscular Hgb 27.6 pg (27.0-32.0); Mean Corpuscular Volume 87.2 fL (81-99); Monocyte# 0.62 X10^3/uL; Monocyte% 9.4 % (0-10); NRBC Flagged by Analyzer 0 % (0-5); Neutrophil # 3.14 X10^3/uL (2.7-7.7); Neutrophil % 47.7 % (47-70); Platelet Count 293 K/mm3 (150-450); RBC Distribution Width CV 12.2 % (11.6-14.6); RBC Distribution Width SD 39.3 fl (35.1-43.9); Red Blood Count 5.15 M/mm3 (4.2-5.4); White Blood Count 6.6 K/mm3 (4.4-11.0)
[2023-07-31 07:18] LABS: ALB/GLOB Ratio 1.1 RATIO (0.9-2.4); AST(SGOT) 21 U/L (15-37); Alanine Aminotransfer ALT/SGPT 31 U/L (13-56); Albumin, Serum 3.7 g/dL (3.2-5.0); Alkaline Phosphatase 74 U/L (45-117); Anion Gap 4 (5-15); BUN 20 mg/dL (7-18); BUN/Creat Ratio 18.7 RATIO (10-20); Calcium,Total 9.3 mg/dL (8.5-10.1); Chloride 108 mmol/L (98-107); Creatinine, Serum 1.07 mg/dL (0.55-1.02); EST Glomerular Filtration Rate 55 mL/min (>60); Est Glom Filt Rate - Afr Amer 67 mL/min (>60); Globulin 3.4 g/dL (2.2-4.2); Glucose 102 mg/dL (74-106); Potassium 4.2 mmol/L (3.5-5.1); Protein, Total 7.1 g/dL (6.4-8.2); Sodium Level 139 mmol/L (136-145)
== END | disposition home or self-care (01) ==
LOC: LAB 05:52
PROVIDERS: PCP Family Medicine; Referring Provider Internal Medicine Rheumatology; Visit Provider Internal Medicine Rheumatology
DX: M06.09 Rheumatoid arthritis without rheumatoid factor, multiple sites (principal); Z79.899 Other long term (current) drug therapy
CPT/HCPCS: 36415; 80053; 85025

== ENCOUNTER → 2023-08-08 | Outpatient (CLI) | payer OTHER, SELFPAY ==
--- NOTE | 2023-08-08 09:25 | RAD_ITS ---
EXAM: XR CHEST, 2 VIEWS CLINICAL INDICATION: CHRONIC COUGH TECHNIQUE: Frontal and lateral views of the chest. COMPARISON: No relevant prior studies available. FINDINGS: LUNGS AND PLEURAL SPACES: Normal. No consolidation or edema. No pneumothorax. No effusion. HEART: Normal heart size. MEDIASTINUM: No mediastinal or hilar mass. BONES/JOINTS: No acute abnormality. RAD/Chest PA and Lateral IMPRESSION: No acute cardiopulmonary disease. Electronically Signed: Jairo Mahoney MD at 9:59 EST ,
== END | disposition home or self-care (01) ==
PROVIDERS: PCP Family Medicine; Referring Provider Family Medicine; Visit Provider Family Medicine
DX: R05.3 Chronic cough (principal)
CPT/HCPCS: 71046

== ENCOUNTER → 2023-08-15 | Outpatient (CLI) | payer OTHER, SELFPAY ==
--- NOTE | 2023-08-16 10:18 | PFT ---
INTRODUCTION: The patient is a 63-year-old female who presents for pulmonary function studies secondary to a diagnosis of chronic cough. Respiratory therapy reported good patient effort. Bronchodilators were used during testing. INTERPRETATION: Forced expiration spirometry demonstrated the presence of a mild large airways obstructive ventilatory defect. There was no significant response to aerosolized bronchodilators. Body plethysmography was performed and revealed an elevated RV to 141% of predicted, indicative of underlying air trapping. Diffusing capacity by single breath CO is within normal limits. IMPRESSION: Irreversible mild large airways obstructive ventilatory defect with associated air trapping.
== END | disposition home or self-care (01) ==
PROVIDERS: PCP Family Medicine; Referring Provider Family Medicine; Visit Provider Family Medicine
DX: R05.3 Chronic cough (principal); R06.00 Dyspnea, unspecified
CPT/HCPCS: 94060; 94726; 94729

== ENCOUNTER → 2023-10-01 | Outpatient (CLI) | payer OTHER, SELFPAY ==
--- NOTE | 2023-10-01 07:34 | BI_ITS ---
MAMMOGRAPHY - BILATERAL SCREENING 3-D TOMOSYNTHESIS REASON FOR EXAM: Female, 63 years old. SCREENING PERTINENT HISTORY: No significant family history. TECHNIQUE: 2-D mammograms and 3-D Tomosynthesis of the breast (s) were performed. CAD was performed. COMPARISON: 09/25/2022 FINDINGS: The breast composition is composed of scattered fibroglandular density. Scattered benign calcifications are seen. No dense spiculated masses or suspicious microcalcifications are identified. No architectural distortion is identified. There is no skin thickening or retraction. There has been no significant change since the prior study. BI/SCRN MAMM (CAD)W/HENRIQUE BILAT IMPRESSION: No mammographic signs of malignancy. Routine yearly mammograms recommended. ASSESSMENT CATEGORY: BIRADS Category 1: Negative. A letter regarding these results will be sent to the patient by the facility within 30 days. FOLLOW UP RECOMMENDATION: Yearly follow up mammogram recommended. (A) Approximately 10% of breast cancers are not detected by mammography. A normal mammogram should not delay biopsy of a clinically suspicious abnormality. Electronically Signed: Mati Lora MD at 8:58 EST ,
--- OUTSIDE RECORDS SUMMARY | 2023-10-01 07:35 | XMS RPT_ITS | CCD ---
Author Name Unknown Address [address] [place] [address] Organization [facility] Care Team Providers Care Hay Stacker Name Role Phone Mayte Alfonso DO Primary Care Provider Abdulkadir Sher Attending Unavailable MAYTE ALFONSO Primary Care Unavailable Allergies Allergy Classification Reported Allergen(s) Allergy Type Date of Onset Reaction(s) Facility (1 source) Hydroxychloroquine Drug Allergy 08-28-2023 [facility] Medications Current Medications Medication Drug Class(es) Dates Sig (Normalized) Sig (Original) amLODIPine 2.5 mg oral tablet (1 source) Dihydropyridine Calcium Channel Tere take 1 tablet by mouth once daily amLODIPine (NORVASC) 2.5 MG tablet Take 1 (one) tablet (2.5 mg total) by mouth daily . 0 Active breath-actuated 120 actuat beclomethasone dipropionate 0.04 mg/actuat metered dose inhaler (1 source) Corticosteroid Start: 4 Qvar RediHaler 40 mcg/actuation HFAB 2 (two) puffs daily . 0 08/23/2023 Active citalopram 40 mg oral tablet (1 source) Serotonin Reuptake Inhibitor Start: 3 take 1 tablet by mouth once daily citalopram (CELEXA) 40 MG tablet Take 1 (one) tablet (40 mg total) by mouth daily . 0 06/15/2023 Active leflunomide 10 mg oral tablet (1 source) Antirheumatic Agent Start: 4 take 1 tablet by mouth once daily Arava 10 mg tablet Take 1 (one) tablet (10 mg total) by mouth daily . 0 08/06/2023 Active levothyroxine sodium 0.175 mg oral tablet (1 source) l-Thyroxine take 1 tablet by mouth once daily levothyroxine (SYNTHROID, LEVOTHROID) 175 MCG tablet Take 1 (one) tablet (175 mcg total) by mouth daily . 0 Active omeprazole 40 mg delayed release oral capsule (1 source) Proton Pump Inhibitor Start: 4 End: 5 take 1 capsule by mouth once daily omeprazole (PRILOSEC) 40 MG capsule Indications: Laryngopharyngeal reflux (LPR) Take 1 (one) capsule (40 mg total) by mouth daily . 30 capsule 3 09/24/2023 09/23/2024 Active polyethylene glycol 3350 955993 mg / potassium chloride 2970 mg / sodium bicarbonate 6740 mg / sodium chloride 5860 mg / sodium sulfate 60730 mg powder for oral solution (1 source) Osmotic Laxative Start: 4 take 4000 mL by mouth once GaviLyte-G 236-22.74-6.74 -5.86 gram solution TAKE 4000 ML BY MOUTH ONE TIME ONLY FOR 1 DOSE. REFER TO PRINTED PREP INSTRUCTIONS FROM PROVIDER 0 08/28/2023 Active Problems Problem Classification Problem Date Documented Da te Episodic/Chronic Esophageal disorders (1 source) Laryngopharyngeal reflux; Translations: [Gastro-esophageal reflux disease without esophagitis] 09-24-2023 Chronic Other lower respiratory disease (1 source) Chronic cough; Translations: [Chronic cough] 09-24-2023 Episodic Other upper respiratory disease (2 sources) Feeling of lump in throat; Translations: [Globus sensation] 08-24-2023 Episodic Results Test Name Value Interpretation Reference Range Facil ity Vital Signs Date Time Vital Sign Value Performing Clinician Faci lity 09-24-2023 08:28-0500 Body height 165.1 cm Hebert Pope MD Work Phone: [facility] 09-24-2023 08:28-0500 Body mass index (BMI) [Ratio] 37.01 kg/m2 Hebert Pope MD Work Phone: [facility] 09-24-2023 08:28-0500 Body temperature 99 [degF] Hebert Pope MD Work Phone: [facility] 09-24-2023 08:28-0500 Body weight 100.88 kg Hebert Pope MD Work Phone: [facility] Encounters Encounter Date Encounter Type Care Provider Facility Start: 09-24-2023 End: 09-24-2023 Office outpatient new 45 minutes Hebert Pope MD Work Phone: [facility] Plan of Treatment Date Care Activity Detail Author Start: 11-06-2023 End: 11-06-2023 Patient encounter procedure 11/06/2023 1:45 PM EDT Office Visit [facility] [address] [place] [id number] Hebert Pope MD [address] [facility] [employer] [address] [place], [place] [id number] [facility] Start: 09-24-2023 End: 09-24-2023 Patient encounter procedure 09/24/2023 8:30 AM EST Office Visit [facility] [address] [place] [id number] Hebert Pope MD [address] [facility] [address] [place] [address] [facility] Start: 03-30-2023 COVID-19 Vaccine ( season) COVID-19 Vaccine ( season) [facility] Start: 03-30-2023 Influenza vaccination Sequential Influenza Vaccine (#1) [facility] Start: 2012 Administration of herpes zoster vaccine Zoster Vaccines (1 of 2) [facility] Start: 2012 Screening for malignant neoplasm of colon Flexible sigmoidoscopy [facility] Start: 2002 Screening for malignant neoplasm of breast Mammogram [facility] Start: 1983 Screening for malignant neoplasm of cervix Pap Smear [facility] Start: 1980 Hepatitis C screening Hepatitis C Screening [facility] Start: 1977 HIV screening HIV Screening [facility] Start: 1974 Depression screening using PHQ-9 (Patient Health Questionnaire 9) score Depression Screening (PHQ-2/9) [facility] Start: 1965 History and physical examination, annual for health maintenance Wellness Visit [facility] Start: 02-09-1963 COVID-19 Vaccine (#1) COVID-19 Vaccine (#1) [facility] Start: 1962 Screening for malignant neoplasm of colon [facility] Start: 1962 Tetanus vaccination Tetanus: Every 10yrs [facility] End: 09-24-2024 CT Chest W contrast IV CT Chest Thorax With Contrast Imaging Routine Chronic cough 1 Occurrences starting 09/24/2023 until 09/24/2024 [facility] Work Phone: Payers Date Payer Category Payer Unknown [id number] Unknown MMO [employer] [place] [employer] [id number] Effective for all dates [phone] [address] [place] [address] 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 consumption unknown [facility] Start: 1960 Sex Assigned At Not on file [facility] Gender identity Not on file [facility] Start: 09-24-2023 Tobacco smoking status [facility] Ex-smoke r [facility] History of tobacco use Current smoker [facility] Start: 09-24-2023 Tobacco use and exposure Smokeless t obacco non-user [facility] Start: 09-24-2023 Alcohol intake Lifetime non-d jeanna (finding) [facility] Clinical Note 09-24-2023 Addendum Note - Hebert Pope MD - 09/24/2023 9:04 AM EST Note Date & Type Note Facility 09-24-2023 Note Addended by: HEBERT POPE on: 09/24/2023 09:04 AM Modules accepted: Level of Service [facility] Note 09-24-2023 Addendum Note - Hebert Pope MD - 09/24/2023 9:04 AM EST Note Date & Type Note Facility 09-24-2023 Miscellaneous Notes Addended by: HEBERT POPE on: 09/24/2023 09:04 AM Modules accepted: Level of Service documented in this encounter [facility] History of Present illness Narrative 09-24-2023 Hebert Pope MD - 09/24/2023 8:35 AM RuthRadha michele REINA - 09/24/2023 8:32 AM EST Note Date & Type Note Facility 09-24-2023 History of Presen t illness Narrative Formatting of this note is different fro m the original. [facility] [address] [facility] [address] [facility] [address] Dept: [phone] Hebert Pope MD [facility] 63 y.o. female Patient presents with a chief complaint of Globus Sensation (Globus sensation, new Pt) Temp 99 F (37.2 C) (Temporal) Ht 5' 5 Wt 100.9 kg (222 lb 6.4 oz) BMI 37.01 kg/m History of Presenting Illness: The patient/caregiver reports a history of complaint with the following features: Onset: started after illness 4 months ago Timing: daily Duration: several months, brief coughing episodes that are getting better Quality: globus sensation, non-productive cough Location: tightness in throat, occasional wheezing Severity: pain mild Risk factors: no prior lung disease, distant smoking history quit 1998 Alleviating factors: inhaler use Aggravating factors: laughing triggers cough Associated factors: abnormal pulmonary function test Review of systems covering 10 systems is reviewed and pertinent positives and negatives are noted as above. Past Medical History: Diagnosis Date Cough Disease of thyroid gland Sleep apnea Stroke (HCC) Current Outpatient Medications: amLODIPine (NORVASC) 2.5 MG tablet, Take 1 (one) tablet (2.5 mg total) by mouth daily ., Disp: , Rfl: Arava 10 mg tablet, Take 1 (one) tablet (10 mg total) by mouth daily ., Disp: , Rfl: citalopram (CELEXA) 40 MG tablet, Take 1 (one) tablet (40 mg total) by mouth daily ., Disp: , Rfl: GaviLyte-G 236-22.74-6.74 -5.86 gram solution, TAKE 4000 ML BY MOUTH ONE TIME ONLY FOR 1 DOSE. REFER TO PRINTED PREP INSTRUCTIONS FROM PROVIDER, Disp: , Rfl: levothyroxine (SYNTHROID, LEVOTHROID) 175 MCG tablet, Take 1 (one) tablet (175 mcg total) by mouth daily ., Disp: , Rfl: Qvar RediHaler 40 mcg/actuation HFAB, 2 (two) puffs daily ., Disp: , Rfl: omeprazole (PRILOSEC) 40 MG capsule, Take 1 (one) capsule (40 mg total) by mouth daily ., Disp: 30 capsule, Rfl: 3 Allergies Allergen Reactions Hydroxychloroquine Hives Past Surgical History: Procedure Laterality Date ADENOIDECTOMY BREAST SURGERY Biopsy TONSILLECTOMY Social History Socioeconomic History Marital status: Tobacco Use Smoking status: Former Smokeless tobacco: Never Substance and Sexual Activity Alcohol use: Never Drug use: Never Sexual activity: Yes Partners: Male control/protection: None Comment: Hysterectomy Family History Problem Relation Age of Onset Cancer Mother Lung/bone Cancer Maternal Grandmother Bone PHYSICAL EXAM: The patient was examined today 09/24/2023 with findings as follows: CONSTITUTIONAL: General Appearance: well-appearing, nontoxic, alert, no acute distress Communication: understanding at normal conversational tones, normal voicing, speech intelligible HEAD/FACE: Head: atraumatic, normocephalic, no lesions Facial Inspection: no lesions, healthy skin Facial Strength: motor strength normal, symmetric strength, symmetric movement Sinuses: no sinus tenderness Salivary Glands: no enlargements of parotid glands, no tenderness of parotid glands, no masses of parotid glands, clear salivary flow on palpation from Stensen's ducts, no duct stones of Stensen's duct, no enlargement of submandibular glands, no tenderness of submandibular glands, no masses of submandibular glands, clear salivary flow from Freeborn's ducts, no stones of Freeborn's ducts Temporomandibular Joint: no crepitus with motion, no tenderness on palpation, no trismus, motion symmetric EYES: Pupils: PERRLA, extra-ocular movements intact, no nystagmus, sclera white, no redness of eyes, no watering of eyes EARS: Bilateral External Ears: no pits, no tags Right External Ear: normally formed, no lesions, no mastoid tenderness Left External Ear: normally formed, no lesions, no mastoid tenderness Right External Auditory Canal: normal, healthy skin, no obstructing cerumen, no discharge Left External Auditory Canal: normal, healthy skin, no obstructing cerumen, no discharge Right Tympanic Membrane: normal landmarks, translucent, mobile to pneumatic otoscopy, no perforation Left Tympanic Membrane: normal landmarks, translucent, mobile to pneumatic otoscopy, no perforation Hearing: intact to spoken voice, intact to finger rub, Haynes midline, Right Ear: Rinne AC>BC, Left Left Ear: Rinne AC>BC NOSE: Nasal Skin: no lesions, no lacerations, no scars Nasal Dorsum: symmetric with no visible or palpable deformities Nasal Tip: normal symmetric nasal tip, normal nasal valves Nasal Mucosa: normal, pink and moist Septum: not markedly deformed, midline, no exposed vessels, no bleeding, no septal granuloma Turbinates: normal size and conformation Nasopharynx: normal ORAL CAVITY/MOUTH: Lips, teeth, gums: normal lips, normal gums, dentition intact, no dental pain on palpation Oral Mucosa: normal, moist, no lesions Palate: normal hard palate, normal soft palate, symmetric palatal elevation Floor of Mouth: normal floor of mouth Tongue: normal tongue, no lesions, no edema, no masses, normal mucosa, mobile Tonsils: normal tonsils, symmetric, no lesions Posterior pharynx: normal HYPOPHARYNX/LARYNX: Hypopharynx: normal hypopharynx, normal tongue base, normal pyriform sinus, normal vallecula Larynx: normal epiglottis, normal false vocal cords, mild edema true vocal cords, normal glottic mobility, arytenoid edema, post-cricoid edema, no subglottic stenosis NECK: Neck: no masses, trachea midline, normal range of motion, no cysts or pits, no tenderness to palpation Thyroid: normal thyroid, no enlargement, no tenderness, no nodules LYMPH NODES: Cervical: no palpable lymph node enlargement RESPIRATORY: Inspection/Auscultation: good air movement, chest expands symmetrically, normal breath sounds, no wheezing, no stridor CARDIOVASCULAR SYSTEM: Auscultation: regular rate and rhythm, carotid pulse normal, no carotid thrills, no carotid bruits Observation/Palpation of Peripheral Vascular System: no varicosities, no cyanosis, no edema SKIN: General Appearance: no lesions, warm and dry, normal turgor, no bruising NEUROLOGICAL SYSTEM: Orientation: oriented to time, oriented to place, oriented to person Cranial Nerves: Cranial Nerves II-XII intact, normal facial movement PSYCHIATRIC: Mood and affect: normal mood, normal affect FIBEROPTIC NASOPHARYNOGLARYNGOSCOPY NOTE ([id number]) PROCEDURE PERFORMED BY: Hebert Pope MD, PROCEDURE DATE: 09/24/2023 With the patient and/or caregiver's consent, the patient is positioned in the exam chair. The nasal cavity is then prepared with local anesthetic/decongestant of 4% Lidocaine and 0.05% oxymetazoline. Using a flexible endoscope the nasal cavity beginning on the left side is entered. There is normal moist nasal septal mucosa. The nasal septum is midline. The inferior turbinate is normal. The middle turbinate is normal. The ethmoid and frontal nasal recesses are intact and patent. The sphenoid sinus ostea is intact and patent. The maxillary sinus ostia is intact and patent The endoscope is then withdrawn and the right side is entered. The inferior turbinate is normal. The middle turbinate is normal. The ethmoid and frontal nasal recesses are intact and patent. The sphenoid sinus ostea is intact and patent. The maxillary sinus ostia is intact and patent Examination of nasopharynx shows normal adenoid and intact and patent eustachian tube orifices. Velopharyngeal closure is intact. Examination of the pharynx reveals the lateral and posterior pharyngeal wall mucosa is normal moist. Tonsils are normal. The tongue base is normal. Examination of the hypopharynx, vallecula, and pyriform sinus reveals normal. The epiglottis is normal. Examination of the vocal folds reveals normal mucosal and mobility bilaterally and mild edema . The arytenoid and post-cricoid mucosa is edematous. The visualized portions of the subglottis is normal. This completed the procedure with the patient having tolerated the procedure well. Assessment and Plan: She presents with a persistent cough after a respiratory illness with pulmonary function testing that showed an irreversible large airway restriction and normal chest x-ray. I see no subglottic restriction on endoscopy. There is some reflux type laryngeal edema. PPI therapy to reduce this is advised as well as a CT chest to assess for any tracheal or bronchial obstruction. She has found the inhaler to be of benefit despite no effect noted on the PFT and she may continue this. The patient and/or caregiver is advised on symptom management with the use of prescribed medication, weight loss, dietary changes with the avoidance of caffeine and carbonated beverages, the avoidance of heavy, spicy, or fatty meals and breaking meals up into several small meals throughout the day, the avoidance of eating less than two hours prior to bedtime, the elevation of the head of bed, and the practice of laryngeal hygiene with frequent sips of water to clear the throat and to maintain adequate hydration. The patient and/or caregiver is to notify the office if no improvement or worsening of symptoms is noted prior to the scheduled follow-up for sooner evaluation. We have discussed that the safety of adjunct faculty for medical terminology use of certain agents is uncertain and that should adjunct faculty for medical terminology therapy be needed that loss of bone density, decreased absorption of some vitamins and minerals, and injury to internal organs has been reported. Weaning off of these medications when able may have adjunct faculty for medical terminology benefits in reducing these risks. The patient and/or caregiver is able to state an understanding of these recommendations and is agreeable to the treatment plan. 1. Chronic cough CT Chest Thorax With Contrast 2. Globus sensation Ambulatory referral to ENT 3. Laryngopharyngeal reflux (LPR) omeprazole (PRILOSEC) 40 MG capsule Return in about 6 weeks (around 11/05/2023). The patient and/or caregiver is to notify the office if no improvement or worsening of symptoms is noted prior to the scheduled follow-up for sooner evaluation. The patient and/or caregiver is able to state an understanding of these recommendations and is agreeable to the treatment plan. --Hebert Pope MD on 09/24/2023 at 8:57 AM An electronic signature was used to authenticate this note. Review of Systems Constitutional: Negative. HENT: Negative. Negative for trouble swallowing. Feels like knot in back of throat Eyes: Negative. Respiratory: Negative. Cardiovascular: Negative. Gastrointestinal: Negative. Endocrine: Negative. Musculoskeletal: Negative. Skin: Negative. Allergic/Immunologic: Negative. Neurological: Negative. Hematological: Negative. Psychiatric/Behavioral: Negative. documented in this encounter [facility] Progress note 08-28-2023 Note Date & Type Note Facility 08-28-2023 Note HNO ID: [id number] Author: ABDULKADIR SHER MD Service: ? Author Type: Physician Type: Progress Notes Filed: 08/28/2023 15:35 Note Text: HISTORY AND PHYSICAL Aurelia Felton 1960 REFERRING PHYSICIAN: No ref. provider found CHIEF COMPLAINT: Consult (Colonoscopy, 2013 last colonoscopy) HPI: The patient is a 63 year old female referred for endoscopy. Aurelia notes that her last colonoscopy was in 2013 She denies blood in her stools. She denies chronic abdominal pain. She denies changes in bowel habits. She notes family members with colon cancer. She presents for consideration of screening for colon cancer via colonoscopy. PAST MEDICAL HISTORY Diagnosis Date Asthma Cough Essential hypertension Rheumatoid arthritis (HCC) Skin cancer left groin TIA (transient ischemic attack) 07/30/2001 Unspecified hypothyroidism Hypothyroidism PAST SURGICAL HISTORY Procedure Laterality Date COLONOSCOPY SCREENING 2013 [facility] w/ Dr Sher LAPAROSCOPY SURG CHOLECYSTECTOMY 09/23/2004 Cholecystectomy, lap NEUROPLASTY AND/TRANSPOS MEDIAN NRV CARPAL TUNNE 07/14/1998 Carpal tunnel decomp right PAST SURGICAL HISTORY OF 05/07/2015 left trigger thumb release PAST SURGICAL HISTORY OF skin cancer removed from right groin TONSILLECTOMY PRIMARY/SECONDARY Tonsillectomy TOTAL ABDOMINAL HYSTERECT W/WO RMVL TUBE OVARY Hysterectomy, TOBY Current Outpatient Medications Medication Sig amLODIPine (NORVASC) 2.5 mg tablet Take 1 tablet by mouth every afternoon. QVAR REDIHALER 40 mcg/actuation inhaler 2 Puffs once daily. citalopram (CELEXA) 40 mg tablet Take 1 tablet by mouth every afternoon. leflunomide (ARAVA) 10 mg tablet Take 1 tablet by mouth every afternoon. SYNTHROID 75 MCG TAB Take one(1) tablet daily. No current facility-administered medications for this visit. ALLERGIES: Hydroxychloroquine PERSONAL HISTORY: Social History Tobacco Use Smoking status: Former Smokeless tobacco: Never Tobacco comments: smoked 7 years 0 .75 PPD quit in 1999 Vaping Use Vaping Use: Never used Substance Use Topics Alcohol use: Yes Comment: occasional Drug use: No FAMILY HISTORY Problem Relation Age of Onset Cancer Mother lung Heart Father aortic valve relacement The review of systems data was entered by the nurse and reviewed by me Nursing Notes: So Alaniz LPN 08/28/2023 9:46 AM Signed REVIEW OF SYSTEMS: General: The patient denies fatigue, denies weight loss, denies weight gain, denies feeling hot, and denies feelings of cold. Eyes: The patient denies glaucoma, denies eye injury/surgery, wears glasses or contacts. Ear/Nose/Throat: The patient notes allergies, denies hayfever, denies ear infections, and denies bloody noses. Cardiovascular: The patient denies chest pain, denies heart disease, notes high blood pressure,denies cardiac stent, denies prior heart attack, denies irregular heart beat, denies high cholesterol, denies poor circulation, denies heart failure, other cardiac issues, denies claudication, denies cold feet, denies peripheral arterial stent. Respiratory: The patient denies tuberculosis, denies pneumonia, notes frequent cough, denies pulmonary embolism, denies shortness of breath, and denies coughing up blood, notes asthma Gastrointestinal: The patient denies difficulty swallowing, denies acid reflux, denies ulcers, denies vomiting, denies jaundice/hepatitis, denies gallbladder problems, denies black or tarry stools, denies hemorrhoids, denies bleeding from rectum, denies diverticulitis, denies constipation, denies diarrhea, denies loss of stool control, and denies hernias. Kidney/Bladder: The patient denies kidney stones, denies urine infections, and denies bloody urine. Skin: The patient notes a history of skin cancer, denies bleeding/changing moles, and denies a history of skin rash. Neurologic: The patient denies a history of epilepsy/convulsions, denies headaches, denies head/spinal injuries, and notes stroke/TIA. Psychiatric: The patient denies psychiatric medications, denies depression, and denies voices, denies substance abuse. Endocrine: The patient notes thyroid disorders, denies diabetes, and denies hormonal problems. Hematologic: The patient denies a history of bruising, denies bleeding, and denies anemia, denies blood clots. Infections: The patient denies a history of measles and mumps, denies rheumatic fever, and denies sexually transmitted diseases. Musculoskeletal: The patient denies back pain/injury, denies back problems, denies sciatica, denies knee/foot trouble, denies arthritis, or denies gout. When was patient's last Mammogram screening? 08/2022 Last Colonoscopy: 2013 So Alaniz LPN PHYSICAL EXAMINATION: General: The patient is 63 year old female, well nourished, well hydrated in no acute distress. The patient is oriented to time, place, and person. VITALS: Blood pressure 130/82, pulse 97, temperature (more content not included)... [facility] Evaluation note Note Date & Type Note Facility documented in this encounter [facility] Evaluation note Note Date & Type Note Facility documented in this encounter [facility] Reason for Referral Specialty Diagnoses / Procedures Referred By Contcrystal t Referred To Contact Otolaryngology Diagnoses Globus sensation HectorrosalinaMayte DO [address] [place] [address] [place] [address] Hebert Pope MD [address] [address] Referral ID Status Reason Start Date Expiration Date V isits Requested Visits Authorized [id number] Pending Review 08/24/2023 08/23/2024 1 1 Specialty Diagnoses / Procedures Referred By Contcrystal t Referred To Contact Radiology Diagnoses Chronic cough Procedures CT Chest Thorax With Contrast Hebert Pope MD [address] [facility] [address] [place] [address] Referral ID Status Reason Start Date Expiration Date V isits Requested Visits Authorized [id number] New Request 09/24/2023 09/23/2024 1 1 Summary Purpose Family History No Family History Records Found Advance Directives No Advanced Directives Records Found Additional Source Comments Care Teams (unrecognized sec tion and content) Hay Stacker Relationship Specialty Start Date End Date Mayte Alfonso DO [address] [address] [place], [place] [id number] PCP - General Family Medicine 08/24/23 INFORMATION SOURCE (unrecogn ized section and content) Reason for Visit (unrecogniz ed section and content) Specialty Diagnoses / Procedures Referred By Contcrystal t Referred To Contact Otolaryngology Diagnoses Globus sensation Mayte Alfonso DO [address] [place] [address] [place] [address] Hebert Pope MD [address] [address] Referral ID Status Reason Start Date Expiration Date V isits Requested Visits Authorized [id number] Pending Review 08/24/2023 08/23/2024 1 1 FOR RECORDS PERTAINING TO PATIENTS WHO ARE [...] BE BASED ON THE PRIMARY CLINICAL RECORDS. [employer] [facility]. provides no warranty or guarantee of the accuracy or completeness of information in this document.
== END | disposition home or self-care (01) ==
LOC: OPBI 07:32
PROVIDERS: PCP Family Medicine; Referring Provider Family Medicine; Visit Provider Family Medicine
DX: Z12.31 Encounter for screening mammogram for malignant neoplasm of breast (principal)
CPT/HCPCS: 77063; 77067

== ENCOUNTER → 2023-10-10 | Outpatient (CLI) | payer OTHER, SELFPAY ==
--- NOTE | 2023-10-10 17:00 | CT_ITS ---
STUDY: CT CHEST WITHOUT CONTRAST REASON FOR EXAM: Female, 63 years old. CHRONIC COUGH RADIATION DOSAGE (If Supplied By Facility): CTDIvol = ( 16.11 ) mGy, DLP = ( 753.97 ) mGycm TECHNIQUE: Transaxial imaging was performed without the administration of intravenous contrast material. Individualized dose optimization techniques were used for this CT. COMPARISON: Comparison is made with prior chest radiograph dated August 08, 2023. FINDINGS: CHEST Minimal increased linear markings in the medial aspect of the right upper lobe suggestive of scarring. No focal infiltrate is seen. Hyperinflation. There is no demonstrated pleural abnormality. Normal heart and pericardium. Normal mediastinum. Normal hilar regions. Normal unenhanced pulmonary arteries. Normal aorta arch and descending thoracic aorta. Normal osseous structures. Fatty infiltration of the liver. Status post cholecystectomy. Small hiatal hernia. CT/Chest WITH Contrast IMPRESSION: Findings suggest minimal scarring in the medial anterior aspect of the right upper lobe. Electronically Signed: Jewel Emerson MD at 9:03 EDT ,
[2023-10-10 17:20] LABS: CREATININE FINGERSTICK 1.4 mg/dL (0.55-1.02)
--- OUTSIDE RECORDS SUMMARY | 2023-10-10 22:49 | XMS RPT_ITS | CCD ---
Author Name Unknown Address [address] [place] [address] Organization [facility] Care Team Providers Care Opener Name Role Phone Mayte Alfonso DO Primary Care Provider [phone] Abdulkadir Sher Attending Unavailable MAYTE ALFONSO Primary [...] 3 09/24/2023 09/23/2024 Active polyethylene glycol 3350 515035 mg / potassium chloride 2970 mg / sodium bicarbonate 6740 mg / sodium chloride 5860 mg / sodium sulfate 85851 mg powder for oral solution (1 source) [...] 165.1 cm Hebert Pope MD Work Phone: [facility] 09-24-2023 08:28-0500 Body mass index (BMI) [Ratio] 37.01 kg/m2 Hebert Pope MD Work Phone: [facility] 09-24-2023 08:28-0500 Body temperature 99 [degF] Hebert Pope MD Work Phone: [facility] 09-24-2023 08:28-0500 Body weight 100.88 kg Hebert Pope MD Work Phone: [facility] Encounters Encounter Date Encounter Type Care Provider Facility Start: 09-24-2023 End: 09-24-2023 Office outpatient new 45 minutes Hebert Pope MD Work Phone: [facility] Plan of Treatment Date Care Activity Detail Author Start: 11-06-2023 End: 11-06-2023 Patient encounter procedure 11/06/2023 1:45 PM EDT Office Visit [facility] [address] [place] [id number] Hebert Pope MD [address] [facility] [employer] [address] [place], [place] [id number] [facility] Start: 09-24-2023 End: 09-24-2023 Patient encounter procedure 09/24/2023 8:30 AM EST Office Visit [facility] [address] [place] [id number] Hebert Pope MD [address] [facility] [address] [place] [address] [facility] Start: 03-30-2023 COVID-19 Vaccine ( season) COVID-19 Vaccine ( season) [facility] Start: 03-30-2023 Influenza vaccination Sequential Influenza Vaccine (#1) [facility] Start: 2012 Administration of herpes zoster vaccine Zoster Vaccines (1 of 2) [facility] Start: 2012 Screening for malignant neoplasm of colon Flexible sigmoidoscopy [facility] Start: 2002 Screening for malignant neoplasm of breast Mammogram [facility] Start: 1983 Screening for malignant neoplasm of cervix Pap Smear [facility] Start: 1980 Hepatitis C screening Hepatitis C Screening [facility] Start: 1977 HIV screening HIV Screening [facility] Start: 1974 Depression screening using PHQ-9 (Patient Health Questionnaire 9) score Depression Screening (PHQ-2/9) [facility] Start: 1965 History and physical examination, annual for health maintenance Wellness Visit [facility] Start: 02-09-1963 COVID-19 Vaccine (#1) COVID-19 Vaccine (#1) [facility] Start: 1962 Screening for malignant neoplasm of colon [facility] Start: 1962 Tetanus vaccination Tetanus: Every 10yrs [facility] End: 09-24-2024 CT Chest W contrast IV CT Chest Thorax With Contrast Imaging Routine Chronic cough 1 Occurrences starting 09/24/2023 until 09/24/2024 [facility] Work Phone: Payers Date Payer Category Payer Unknown [id number] Unknown [employer] [place] [employer] [id number] Effective for all dates [phone] [address] [place] [address] 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 [facility] Start: 1960 Sex Assigned At Not on file [facility] Gender identity Not on file [facility] Start: 09-24-2023 Tobacco smoking status [facility] Ex-smoke r [facility] History of tobacco use Current smoker [facility] Start: 09-24-2023 Tobacco use and exposure Smokeless t obacco non-user [facility] Start: 09-24-2023 Alcohol intake Lifetime non-d jeanna (finding) [facility] Clinical Note 09-24-2023 Addendum Note - Hebert Pope MD - 09/24/2023 9:04 AM EST Note Date & Type Note Facility 09-24-2023 Note Addended by: HEBERT POPE on: 09/24/2023 09:04 AM Modules accepted: Level of Service [facility] Note 09-24-2023 Addendum Note - Hebert Pope MD - 09/24/2023 9:04 AM EST Note Date & Type Note Facility 09-24-2023 Miscellaneous Notes Addended by: HEBERT POPE on: 09/24/2023 09:04 AM Modules accepted: Level of Service documented in this encounter [facility] History of Present illness Narrative 09-24-2023 Hebert Pope MD - 09/24/2023 8:35 AM RuthRadha michele REINA - 09/24/2023 8:32 AM EST Note Date & Type Note Facility 09-24-2023 History of Presen t illness Narrative Formatting of this note is different fro m the original. [facility] [address] [facility] [place] [address] [facility] [address] Dept: [phone] Hebert Pope MD [facility] 63 y.o. female Patient presents with a [...] of submandibular glands, clear salivary flow from [place]'s ducts, no stones of Stanley's ducts Temporomandibular Joint: no crepitus with motion, [...] normal mood, normal affect FIBEROPTIC NASOPHARYNOGLARYNGOSCOPY NOTE ([id number]) PROCEDURE PERFORMED BY: Hebert Pope MD, PROCEDURE [...] We have discussed that the safety of manager long term care use of certain agents is uncertain and that should manager long term care therapy be needed that loss of bone density, decreased absorption of some vitamins and minerals, and injury to internal organs has been reported. Weaning off of these medications when able may have skilled nursing benefits in reducing these risks. The patient [...] Negative. Psychiatric/Behavioral: Negative. documented in this encounter [facility] Progress note 08-28-2023 Note Date & Type Note Facility 08-28-2023 Note HNO ID: [id number] Author: ABDULKADIR SHER MD Service: ? Author [...] HISTORY Procedure Laterality Date COLONOSCOPY SCREENING 2013 [facility] w/ Dr Sher LAPAROSCOPY SURG [...] pulse 97, temperature (more content not included)... [facility] Evaluation note Note Date & Type Note Facility documented in this encounter [facility] Evaluation note Note Date & Type Note Facility documented in this encounter [facility] Reason for Referral Specialty Diagnoses / Procedures Referred By Contcrystal t Referred To Contact Otolaryngology Diagnoses Globus sensation HectorrosalinaMayte DO [address] [place] [place] [address] [place] [address] Hebert Pope MD [address] [address] Referral ID Status Reason Start Date Expiration Date V isits Requested Visits Authorized [id number] Pending Review 08/24/2023 08/23/2024 1 1 Specialty Diagnoses / Procedures Referred By Contcrystal t Referred To Contact Radiology Diagnoses Chronic cough Procedures CT Chest Thorax With Contrast Hebert Pope MD [address] [facility] [address] [place] [address] Referral ID Status Reason Start Date Expiration Date V isits Requested Visits Authorized [id number] New Request 09/24/2023 09/23/2024 1 1 Summary Purpose Family History No Family History Records Found Advance Directives No Advanced Directives Records Found Additional Source Comments Care Teams (unrecognized sec tion and content) Opener Relationship Specialty Start Date End Date Mayte Alfonso DO [address] [place], [place] [id number] PCP - General Family Medicine 08/24/23 INFORMATION SOURCE (unrecogn ized section and content) Reason for Visit (unrecogniz ed section and content) Specialty Diagnoses / Procedures Referred By Contcrystal t Referred To Contact Otolaryngology Diagnoses Globus sensation Mayte Alfonso DO [address] [place] [place] [address] [place] [address] Hebert Pope MD [address] [address] Referral ID Status Reason Start Date Expiration Date V isits Requested Visits Authorized [id number] Pending Review 08/24/2023 08/23/2024 1 1 FOR [...] BE BASED ON THE PRIMARY CLINICAL RECORDS. [facility]. provides no warranty or guarantee of the accuracy or completeness of information in this document.
== END | disposition home or self-care (01) ==
LOC: CT 16:47
PROVIDERS: PCP Family Medicine; Referring Provider Otolaryngology; Visit Provider Otolaryngology
DX: R05.3 Chronic cough (principal)
CPT/HCPCS: 71260; Q9967

== ENCOUNTER → 2023-10-16 | Outpatient (CLI) | payer OTHER, SELFPAY ==
--- NOTE | 2023-10-16 14:58 | RAD_ITS ---
INDICATION: KUB- KIDNEY STONES,FLANK PAIN EXAMINATION/TECHNIQUE: X-RAY - XR Abdomen 1 View COMPARISON: No relevant prior comparison study available FINDINGS: BOWEL GAS PATTERN: Non-obstructive. No bowel or stomach distention. FREE AIR: Not assessed on a single supine view. ORGANOMEGALY: Not seen. CALCIFICATIONS: Multiple pelvic calcifications likely due to phleboliths. Distal ureteral stone cannot be entirely excluded. No definite stones overlying the kidneys. LOWER CHEST: No acute pathology. BONES AND SOFT TISSUES: No acute pathology. RAD/Abdomen Single View IMPRESSION: Pelvic calcifications as described above. Electronically Signed: Ras Estrada MD at 15:37 EDT ,
== END | disposition home or self-care (01) ==
LOC: MTRAD 14:57
PROVIDERS: PCP Family Medicine; Referring Provider Nurse Practitioner Family; Visit Provider Nurse Practitioner Family
DX: R10.9 Unspecified abdominal pain (principal)
CPT/HCPCS: 74018

== ENCOUNTER 2023-10-18 05:57 | Emergency (ER) | payer OTHER, SELFPAY ==
[2023-10-18 05:57] VITALS: BP 181/92; PULSE 84; RESP 16; TEMP 36.8; O2SAT 98; BMI 37.5
--- NOTE | 2023-10-18 06:07 | CT_ITS ---
EXAM: CT ABDOMEN AND PELVIS WITHOUT INTRAVENOUS CONTRAST CLINICAL INDICATION: Kidney Stone- right flank pain. TECHNIQUE: Helically acquired images were obtained of the abdomen and pelvis without intravenous contrast. This CT exam was performed using one or more of the following dose reduction techniques: automated exposure control, adjustment of the mA and/or kV according to patient size, and/or use of iterative reconstruction technique. RADIATION DOSE: CTDIvol = 18.91 mGy, DLP = 940.19 mGy-cm COMPARISON: No relevant prior studies available. FINDINGS: LOWER THORAX: Unremarkable. Lung bases are clear. No cardiomegaly. No significant pericardial effusion. ABDOMEN: LIVER: Unremarkable. Homogeneous. GALLBLADDER AND BILE DUCTS: Cholecystectomy. No intra- or extrahepatic biliary ductal dilation. PANCREAS: Unremarkable. No focal cystic mass. SPLEEN: Unremarkable. Normal size without focal cystic or solid mass. ADRENALS: Unremarkable. No nodules. KIDNEYS AND URETERS: Unremarkable. Normal renal size and position. No hydronephrosis, renal, or ureteral calculi. STOMACH AND BOWEL: Unremarkable. No stomach or bowel distention. No focal inflammatory change. PELVIS: APPENDIX: Status post appendectomy. BLADDER: Unremarkable. REPRODUCTIVE: Unremarkable as visualized. No mass. ABDOMEN and PELVIS: INTRAPERITONEAL SPACE: Unremarkable. No ascites or other fluid collection. No free air. BONES/JOINTS: Unremarkable. No suspicious lytic or blastic abnormality. SOFT TISSUES: Unremarkable. No discrete abdominal or pelvic wall hernia. VASCULATURE: Unremarkable. Abdominal aorta is non-dilated. LYMPH NODES: Unremarkable. No enlarged lymph nodes. CT/Abdomen/Pelvis without Cont IMPRESSION: 1. No hydronephrosis, renal, or ureteral calculi. 2. No acute abdominal pelvic abnormality. 3. Cholecystectomy. Electronically Signed: Severino Mac MD at 6:56 EDT ,
--- NOTE | 2023-10-18 06:08 | EX.ED.DYSGE1 ---
HPI History of Present Illness Chief Complaint: Flank Pain Informant: patient Narrative Narrative: Patient is a 63 year old female with history of CKD, follows with Dr. Caldwell, rheumatoid arthritis (on Arava/leflunomide), hypothyroid and hypertension presenting with worsening right flank/back pain. Patient states she has had pain for the past week. It seems to be worse at night. She states is usually dull but she will intermittently get sharp episodes of pain. Tonight she was laying in bed and the pain started to radiate to her abdomen and became more severe. She did not take any for pain prior to arrival as she states Tylenol does not really work and she cannot have NSAIDs because of her CKD. She saw her personal secretary 2 days ago who ordered an x-ray which was normal was told that if her symptoms worsen she is to come to the ER for CT scan to rule out a kidney stone. Patient denies any trauma or falls. Denies any urinary symptoms. Has had some nausea tonight but attributes that to the pain. Denies any vomiting or change in her bowel movements. Notes on this pain for started she was at her daughter's house and was sharing the bed with her 4-year-old grandchild and is not sure if that caused her pain. Denies any numbness or tingling of her legs. Denies any radiation of her pain down her legs. No other complaints or concerns at this time. [facility] Medical History Hypertension Kidney disease Home Medications amlodipine 2.5 mg tablet 2.5 mg PO DAILY 10/18/23 [History Last Taken Unknown] citalopram 40 mg tablet 40 mg PO DAILY 10/18/23 [History Last Taken Unknown] cyclobenzaprine 10 mg tablet 10 mg PO TID PRN Muscle Spasm #20 TABLETS 10/18/23 [Rx Last Taken Unknown] levothyroxine 112 mcg tablet 112 mcg PO DAILY 10/18/23 [History Last Taken Unknown] Allergy/AdvReac Type Severity Reaction Status Date / Time No Known Allergies Allergy Verified 10/18/23 05:57 Surgical History History of appendectomy History of cholecystectomy Social History (Reviewed 10/18/23 @ 06:[address] LOVELY Morin Smoking Status: Former smoker ROS ROS ED Constitutional Constitutional ED: Denies chills or fever(s) Cardiovascular Cardiovascular: Denies chest pain Respiratory/Chest Respiratory/Chest: Denies cough Gastrointestinal Gastrointestinal: Reports abdominal pain and nausea; Denies constipation, diarrhea or vomiting Genitourinary Genitourinary ED: Denies dysuria, hematuria or urinary frequency Musculoskeletal Musculoskeletal: Reports back pain; Denies arthralgias Integumentary Denies rash Neurologic Neurologic: Denies headache(s), paresthesias or weakness Psychiatric Psychiatric: Denies anxiety Hematologic/Lymphatic Hematologic/Lymphatic: Denies easy bleeding or easy bruising EXAM Physical Exam Const Vital Signs: 10/18/23 05:57 10/18/23 06:22 Temperature 98.2 F Temperature Source Temporal Pulse Rate 84 Respiratory Rate 16 Blood Pressure 181/92 H 151/78 H Blood Pressure Mean 121 102 Pulse Ox 98 Oxygen Delivery Method Room Air Positive well nourished and well developed Constitutional Narrative: Uncomfortable appearing General Appearance ED: well developed and NAD HEENT Reports moist mucous membranes Eyes PERRL Neck supple Chest Wall inspection of chest normal Resp normal respiratory effort and clear to auscultation bilaterally Cardio regular rate, regular rhythm and no murmurs Cardio Narrative: 2+ DP and radial pulses bilateral GI normal to inspection, nondistended, normoactive bowel sounds and non-tender Palpation: Negative for tender or mass Back/Spine Back/Spine Narrative: Tenderness to palpation of the right L3 and L4 paraspinal region General Back: CVA tenderness right Thoracic Spine / Upper Back: Negative for thoracic spinal tenderness Lumbar Spine / Lower Back: Negative for lumbar spinal tenderness Extremity normal to inspection General Extremety ED: Negative for edema General Extremity: Negative for edema Neuro oriented x3 Sensorium / Orientation: alert Motor Exam: Negative for general weakness Psych mental status grossly normal Skin no rashes or lesions noted and no wounds MDM MDM MDM Narrative Medical decision making narrative: Patient is evaluated for 1 week of worsening right flank pain. She appears nontoxic but uncomfortable. Vital signs significant for hypertension. Differential includes renal colic, pyelonephritis, muscle skeletal pain/spasm of the lumbar spine. Lower suspicion for aortic dissection given 1 week of waxing and waning symptoms and no symptoms below the waist/equal pulses in all extremities. Will obtain labs, CT flank study and give the patient fluids, Zofran and morphine for symptom control. On repeat evaluation patient is much more comfortable. Blood pressure is improved. Lab work largely unremarkable including CBC and CMP. Creatinine is at baseline at 1.08. CT of the abdomen pelvis without contrast does not show any acute pathology to explain her pain. Specifically there does not appear to be any obstructing kidney stones. Urinalysis pending however I suspect her pain is more of a spasm. Will be started on Lidoderm patches and muscle relaxer. Urinalysis is pending however I have a low suspicion for pyelonephritis and regardless patient likely can be discharged home ? antibiotics as needed. Patient is agreeable with this. Is given return precautions. Lab Data Attestation: I reviewed the patient's lab results. Labs: Laboratory Results - last 24 hr 10/18/23 06:10 WBC 7.2 RBC 5.09 Hgb 14.0 Hct 43.4 MCV 85.3 MCH 27.5 MCHC 32.3 RDW Std Deviation 37.2 RDW Coeff of Tirso 12.0 Plt Count 275 MPV 9.8 Immature Gran % (Auto) 0.300 Neut % (Auto) 58.9 Lymph % (Auto) 27.5 [place] % (Auto) 7.8 Eos % (Auto) 4.5 Baso % (Auto) 1.0 Absolute Neuts (auto) 4.2 Absolute Lymphs (auto) 1.97 Nucleated RBC % 0 Sodium 139 Potassium 4.2 Chloride 108 H Carbon Dioxide 26.0 Anion Gap 5 BUN 19 H Creatinine 1.08 H Estim Creat Clear Calc 64.90 Est GFR (MDRD) Af Amer 66 Est GFR (MDRD) Non-Af 55 L BUN/Creatinine Ratio 17.6 Glucose 99 Calcium 8.7 Total Bilirubin 0.50 Direct Bilirubin 0.12 AST 15 ALT 23 Alkaline Phosphatase 78 Total Protein 6.9 Albumin 3.7 Globulin 3.2 Radiography Diagnostic Testing: Clinical Impression(s) from Imaging Studies Abdomen/Pelvis CT 10/18/23 06:07 IMPRESSION: 1. No hydronephrosis, renal, or ureteral calculi. 2. No acute abdominal pelvic abnormality. 3. Cholecystectomy. Electronically Signed: Severino Mac MD at 6:56 EDT , Discharge Plan Triage Chief Complaint: Flank Pain ED Provider: Azul Uribe Dx/Rx/DC Orders Clinical Impression: Acute right flank pain, Lumbar paraspinal muscle spasm Instructions: ED Back Spasm, No Trauma Prescriptions: New cyclobenzaprine 10 mg tablet 10 mg PO TID PRN (Reason: Muscle Spasm) Qty: 20 0RF No Action citalopram 40 mg tablet 40 mg PO DAILY amlodipine 2.5 mg tablet 2.5 mg PO DAILY levothyroxine 112 mcg tablet 112 mcg PO DAILY Primary Care Provider: Mayte Montana Referrals: Mayte Montana DO [Primary Care Provider] - Activity Restrictions/Additional Instructions: I recommend [id number] 4% extra strength Lidoderm patches to help with your pain. I would recommend arthritis/high-dose Tylenol throughout the day or before bed as well. You do not have a kidney stone or any other acute kidney abnormality/laboratory abnormalities. You also try heat to your back and gentle stretching. Please follow-up with your primary care doctor. Disposition Disposition: Home, Self Care
[2023-10-18] MEDS: Morphine 4 MG/ML Syringe IV (06:16)
[2023-10-18] MEDS: Ondansetron 4 MG/2 ML Vial IV (06:16)
[2023-10-18] MEDS: 0.9% Normal Saline (1000mL) 1,000 ML 250 ML IV (06:16)
[2023-10-18 06:19] LABS: Absolute Lymphocyte Count 1.97 X10^3/uL (0.83-4.51); Absolute Neutrophil Count 4.2 X10^3/uL (2.0-7.7); Basophil# 0.07 X10^3/uL; Eosinophil# 0.32 X10^3/uL; Eosinophils% 4.5 % (0-5); Hematocrit 43.4 % (37-47); Lymphocyte # 1.97 X10^3/ul (0.83-4.51); Lymphocyte % 27.5 % (19-41); Mean Corp Hgb Conc 32.3 g/dL (32-36); Mean Corpuscular Hgb 27.5 pg (27.0-32.0); Mean Corpuscular Volume 85.3 fL (81-99); Mean Platelet Vol. 9.8 fl (6.2-12.0); Monocyte# 0.56 X10^3/uL; Monocyte% 7.8 % (0-10); NRBC Flagged by Analyzer 0 % (0-5); Neutrophil # 4.22 X10^3/uL (2.7-7.7); Neutrophil % 58.9 % (47-70); Platelet Count 275 K/mm3 (150-450); RBC Distribution Width SD 37.2 fl (35.1-43.9); Red Blood Count 5.09 M/mm3 (4.2-5.4); White Blood Count 7.2 K/mm3 (4.4-11.0)
[2023-10-18 06:22] VITALS: BP 151/78
[2023-10-18 06:35] LABS: Anion Gap 5 (5-15); BUN 19 mg/dL (7-18); BUN/Creat Ratio 17.6 RATIO (10-20); Calcium,Total 8.7 mg/dL (8.5-10.1); Chloride 108 mmol/L (98-107); Creatinine, Serum 1.08 mg/dL (0.55-1.02); EST Glomerular Filtration Rate 55 mL/min (>60); Est Glom Filt Rate - Afr Amer 66 mL/min (>60); Glucose 99 mg/dL (74-106); Potassium 4.2 mmol/L (3.5-5.1); Sodium Level 139 mmol/L (136-145)
[2023-10-18 06:48] LABS: AST(SGOT) 15 U/L (15-37); Alanine Aminotransfer ALT/SGPT 23 U/L (13-56); Albumin, Serum 3.7 g/dL (3.2-5.0); Alkaline Phosphatase 78 U/L (45-117); Bilirubin, Direct 0.12 mg/dL (0.00-0.30); Globulin 3.2 g/dL (2.2-4.2); Protein, Total 6.9 g/dL (6.4-8.2)
[2023-10-18] MEDS: Lidocaine 5% Patch 1 PATCH TOPICAL (07:49)
[2023-10-18 07:55] LABS: Bacteria 0 SEEN /hpf (None Seen); Mucous, Urine 0 SEEN /hpf (<or=2+); Red Blood Cells-Urine 0 SEEN /hpf (0-5); White Blood Cells 0 SEEN /hpf (0-5)
[2023-10-18 08:00] VITALS: BP 144/79; PULSE 84; RESP 16; O2SAT 97
[2023-10-18 08:27] LABS: Color, Urine Yellow (Yellow); Glucose, Dipstick Normal (Normal); Ketone-Dipstick Negative (Negative); Leukocyte Esterase-Dipstick Negative /ul (Negative); Nitrite-Dipstick Negative (Negative); Occult Blood-Urine Negative /ul (Negative); Protein-Dipstick Negative (Negative); Specific Gravity, Urine 1.015 (1.002-1.030); Urine Bilirubin Dipstick Negative (Negative); Urine Clarity Clear (Clear); Urine Urobilinogen Normal (Normal); Urine pH 6.5 (5.0 - 8.0)
[2023-10-18 08:36] LABS: Squamous Epithelial Cells - UA 0-5 SEEN /hpf (5-10)
[2023-10-18 09:00] VITALS: BP 144/79; PULSE 84; RESP 16; TEMP 36.6; O2SAT 97
== END 2023-10-18 09:02 | disposition home or self-care (01) ==
PROVIDERS: Emergency Provider Emergency Medicine; PCP Family Medicine; Visit Provider Emergency Medicine
DX: R10.9 Unspecified abdominal pain (principal); M06.9 Rheumatoid arthritis, unspecified; Z87.891 Personal history of nicotine dependence; M62.830 Muscle spasm of back; E03.9 Hypothyroidism, unspecified; N18.9 Chronic kidney disease, unspecified; I12.9 Hypertensive chronic kidney disease with stage 1 through stage 4 chronic kidney disease, or unspecified chronic kidney disease; Z79.899 Other long term (current) drug therapy; Z90.49 Acquired absence of other specified parts of digestive tract
CPT/HCPCS: 74176; 80048; 80076; 81001; 85025; 96361; 96374; 96375; 99283; J7030; A4216; J2405

== ENCOUNTER → 2023-10-25 | Outpatient (CLI) | payer OTHER, SELFPAY ==
[2023-10-25 09:57] LABS: Absolute Lymphocyte Count 1.76 X10^3/uL (0.83-4.51); Absolute Neutrophil Count 3.6 X10^3/uL (2.0-7.7); Basophil# 0.06 X10^3/uL; Eosinophil# 0.36 X10^3/uL; Eosinophils% 5.7 % (0-5); Hemoglobin 14.6 g/dL (12.0-15.0); Lymphocyte # 1.76 X10^3/ul (0.83-4.51); Mean Corp Hgb Conc 33.2 g/dL (32-36); Mean Corpuscular Hgb 28.3 pg (27.0-32.0); Mean Corpuscular Volume 85.4 fL (81-99); Mean Platelet Vol. 9.9 fl (6.2-12.0); Monocyte# 0.47 X10^3/uL; Monocyte% 7.5 % (0-10); NRBC Flagged by Analyzer 0 % (0-5); Neutrophil # 3.63 X10^3/uL (2.7-7.7); Neutrophil % 57.6 % (47-70); Platelet Count 300 K/mm3 (150-450); RBC Distribution Width CV 11.9 % (11.6-14.6); RBC Distribution Width SD 37.6 fl (35.1-43.9); Red Blood Count 5.15 M/mm3 (4.2-5.4); White Blood Count 6.3 K/mm3 (4.4-11.0)
[2023-10-25 10:13] LABS: ALB/GLOB Ratio 1.1 RATIO (0.9-2.4); AST(SGOT) 22 U/L (15-37); Alanine Aminotransfer ALT/SGPT 24 U/L (13-56); Albumin, Serum 3.7 g/dL (3.2-5.0); Alkaline Phosphatase 89 U/L (45-117); Anion Gap 3 (5-15); BUN 17 mg/dL (7-18); BUN/Creat Ratio 15.2 RATIO (10-20); Calcium,Total 8.8 mg/dL (8.5-10.1); Chloride 109 mmol/L (98-107); Cholesterol 173 mg/dL (200); Creatinine, Serum 1.12 mg/dL (0.55-1.02); EST Glomerular Filtration Rate 53 mL/min (>60); Est Glom Filt Rate - Afr Amer 64 mL/min (>60); Free T3 2.4 pg/mL (2.18-3.98); Globulin 3.4 g/dL (2.2-4.2); Glucose 92 mg/dL (74-106); High Density Lipoprotein 41 mg/dL; Potassium 4.3 mmol/L (3.5-5.1); Protein, Total 7.1 g/dL (6.4-8.2); Sodium Level 136 mmol/L (136-145); T4 Free Direct 1.06 ng/dL (0.76-1.46); Thyroid Stim Hormone (TSH) 0.61 uIU/mL (0.358-3.74); Triglycerides 156 mg/dL; Very Low Density Lipoprotein 31 mg/dL (5-40)
== END | disposition home or self-care (01) ==
LOC: MTLAB 07:09
PROVIDERS: PCP Family Medicine; Referring Provider Family Medicine; Visit Provider Family Medicine
DX: E03.9 Hypothyroidism, unspecified (principal); M06.09 Rheumatoid arthritis without rheumatoid factor, multiple sites; N18.31 Chronic kidney disease, stage 3a; Z51.81 Encounter for therapeutic drug level monitoring; E78.5 Hyperlipidemia, unspecified; Z79.899 Other long term (current) drug therapy
CPT/HCPCS: 36415; 80053; 80061; 84439; 84443; 84481; 85025

== ENCOUNTER → 2024-07-28 | Outpatient (CLI) | payer OTHER, SELFPAY ==
--- NOTE | 2024-07-28 07:12 | US_ITS ---
STUDY: ABDOMINAL ULTRASOUND - RIGHT UPPER QUADRANT REASON FOR VISIT: Female, 63 years old ELEVATED LIVER ENZYMES TECHNIQUE: Ultrasound evaluation of the right upper quadrant was performed with real-time and static aguirre-scale imaging. TECHNICAL QUALITY: Adequate. COMPARISON: None. FINDINGS: Liver: The liver measures 13.1 cm. There is normal echogenicity of the liver. The bile ducts are within normal limits. There is hepatic color flow. The direction of portal flow is hepatopetal. There is no demonstrated mass lesion. Gallbladder: The patient is status post cholecystectomy. s. Common Bile Duct (C.B.D.): The common bile duct measures 5 mm. Pancreas: Normal size of the head, body and tail of the pancreas. There is normal echogenicity of the pancreas. There is no demonstrated pancreatic mass or cyst. Right Kidney: Normal size of the right kidney. The right kidney measures 10.1 cm. Normal renal cortex. The right cortex measures 1.4 cm. There is no demonstrated renal mass or cyst. There is no right hydronephrosis. US/Abdomen Limited IMPRESSION: Normal right upper quadrant ultrasound examination after cholecystectomy. Electronically Signed: Mati Lora MD at 18:07 EST ,
== END | disposition home or self-care (01) ==
PROVIDERS: PCP Family Medicine; Referring Provider Internal Medicine Rheumatology; Visit Provider Internal Medicine Rheumatology
DX: R74.01 Elevation of levels of liver transaminase levels (principal); Z79.899 Other long term (current) drug therapy
CPT/HCPCS: 76705

== ENCOUNTER → 2024-11-05 | Outpatient (CLI) | payer OTHER, SELFPAY ==
--- NOTE | 2024-11-05 07:05 | BI_ITS ---
EXAM: SCRN MAMM (CAD)W/HENRIQUE BILAT 11/05/2024 CLINICAL HISTORY: F, Age 64 y/o , SCREENING TECHNIQUE: Bilateral screening digital breast tomosynthesis with 2D and 3D images. Computer aided detection. COMPARISON: Prior exam(s) dated 10/01/2023, 09/25/2022. FINDINGS: TISSUE DENSITY: The breast tissue is composed of scattered area of fibroglandular density. Bilateral Breast Mammographic Findings: No significant masses, calcifications or other abnormalities are identified. BI/SCRN MAMM (CAD)W/HENRIQUE BILAT IMPRESSION: Right Breast: BIRADS 1 NEGATIVE. Left Breast: BIRADS 1 NEGATIVE. OVERALL FINAL ASSESSMENT: BIRADS 1 NEGATIVE. RECOMMENDATION: Routine annual follow-up in 1 Year A letter with findings and recommendations will be mailed to the patient. Reading Location: [id number]
== END | disposition home or self-care (01) ==
LOC: OPBI 07:03
PROVIDERS: PCP Family Medicine; Referring Provider Family Medicine; Visit Provider Family Medicine
DX: Z12.31 Encounter for screening mammogram for malignant neoplasm of breast (principal)
CPT/HCPCS: 77063; 77067